=== PATIENT | female | born 1980 | race Caucasian/White ===

== ENCOUNTER 2017-01-24 12:25 | Inpatient (IN) | payer MEDICARE, OTHER ==
[~2017-01-24] VITALS: Ht 132.1 cm; Wt 36.3 kg
[~2017-01-24 12:25] MED LIST: ACID1TAB14 PO; FAMO20TA5 PO; LEVE100S8 PEG; LEVO100T5 PEG; NYST60PO TP; SCOP1PAT TD; [UNRECOGNIZED DRUG - CODE] PEG
[2017-01-24] MEDS ORDERED: IV NORMAL SALINE 500ML BAG 500 ML IV ONE (13:00)
--- NOTE | 2017-01-24 13:25 | RAD ---
EXAM: CHEST 1 VIEW History: Tachycardia COMPARISON: 09/28/2015 TECHNIQUE: Single portable radiograph of the chest FINDINGS: The cardiac silhouette is unremarkable. The lungs are clear bilaterally. The costophrenic sulci are clear and well demarcated. IMPRESSION: No radiographic evidence of an acute cardiopulmonary process.
--- NOTE | 2017-01-24 13:32 | PHYS DOC ---
Past Medical History Past Medical History: CVA, Hypothyroid, Seizure, Other Additional Past Medical Histor: BRAIN TUMOR, fx to R upper arm Past Surgical History: Other Additional Past Surgical Histo: BRAIN TUMOR SURGERY, THYROIDECTOMY, PEG tube placement Alcohol Use: None Drug Use: None Adult General Chief Complaint Chief Complaint: BEDSORES HPI HPI Patient is a 36 year old female who presents with wound infection to buttocks. Patient is nonverbal, unable to give history due to clinical condition. She has history of brain tumor & stroke, nonverbal at baseline. Aunt at bedside states family helps care for her, today they noticed a deep wound on her right buttock/coccyx which was red in appearance. No known fevers, chills, nausea, vomiting. She lives at home & family helps to care for her. Review of Systems Review of Systems unable to obtain due to clinical condition. Current Medications Current Medications Current Medications Medications (Trade) Dose Ordered Sig/Masoud Start Time Stop Time Status Last Admin Dose Admin Sodium Chloride 500 ml @ 0 mls/hr 1X ONCE 01/24/17 13:00 01/24/17 13:01 DC 01/24/17 13:55 999 MLS/HR Allergies Allergies Allergies Coded Allergies Type Severity Reaction Last Updated Verified apple Allergy Severe SEIZURES 09/28/15 Yes phenytoin Allergy Intermediate Rash 09/28/15 Yes Physical Exam Physical Exam Constitutional: thin, frail, no acute distress, non-toxic appearance. HENT: Normocephalic, atraumatic, bilateral external ears normal, oropharynx moist, nose normal. Eyes: PERRLA, conjunctiva normal, no discharge. Neck: supple, no stridor. Cardiovascular: RRR, no murmurs, no edema. Lungs & Thorax: diminished in bases, LCTAB, no wheezing, no respiratory distress. Abdomen: soft, nontender, nondistended. Skin: over right buttock/coccyx there is a 4 x 5 cm circular wound approx 2 cm deep with surrounding erythema/warmth, no drainage. no abscess identified. Back: No tenderness. Extremities: No tenderness, no edema. Neurologic: alert, nonverbal, no spontaneous movements of extremities which is baseline. Psychologic: unable to assess due to nonverbal state. Current Patient Data Vital Signs Vital Signs Date Time Temp Pulse Resp B/P (MAP) Pulse Ox O2 Delivery O2 Flow Rate FiO2 01/24/17 12:50 98.2 92 18 126/79 (95) 97 Room Air 98.2 EKG EKG [] Radiology/Procedures Radiology/Procedures PROCEDURE: CHEST AP ONLY EXAM: CHEST 1 VIEW History: Tachycardia COMPARISON: 09/28/2015 TECHNIQUE: Single portable radiograph of the chest FINDINGS: The cardiac silhouette is unremarkable. The lungs are clear bilaterally. The costophrenic sulci are clear and well demarcated. IMPRESSION: No radiographic evidence of an acute cardiopulmonary process. DICTATED and SIGNED BY: KAVITHA GUTIERREZ MD DATE: 01/24/17 1322[] Course & Med Decision Making Course & Med Decision Making Pertinent Labs and Imaging studies reviewed. (See chart for details) The issue presents with infected wound/pressure ulcer to her right buttock. Obtained a wound culture as well as labs, UA, CXR. The patient received IV fluids. She does not meet criteria for SIRS/sepsis. Recommend admission for IV antibiotics, wound care consult. Will continue IV fluid hydration for hyponatremia. Her family agrees with plan of care. She is admitted in stable condition. [] Dragon Disclaimer Dragon Disclaimer This electronic medical record was generated, in whole or in part, using a voice recognition dictation system. Departure Departure Impression: Primary Impression: Wound infection Additional Impressions: Hyponatremia Leukocytosis Disposition: ADMITTED INPATIENT Condition: STABLE Problem Qualifiers CLIFF ARREAGA MD Jan 24, 2017 13:31
[2017-01-24 13:40] LABS: BASO % 0 % (0-3); EOS % 0 % (0-3); HEMATOCRIT 29.9 % (36.0-47.0); LYMPH # 0.4 x10^3/uL (1.0-4.8); LYMPH % 4 % (24-48); MEAN CORPUSCULAR HEMOGLOBIN 30 pg (25-35); MEAN CORPUSCULAR HGB CONC 33 g/dL (31-37); MEAN CORPUSCULAR VOLUME 91 fL (79-100); MONO % 6 % (0-9); NEUT % 90 % (31-73); PLATELET COUNT 532 x10^3/uL (140-400); RED BLOOD COUNT 3.31 x10^6/uL (3.50-5.40); RED CELL DISTRIBUTION WIDTH 14.5 % (11.5-14.5); WHITE BLOOD COUNT 11.3 x10^3/uL (4.0-11.0)
[2017-01-24 13:48] LABS: ANION GAP 0 (6-14); BLOOD UREA NITROGEN 17 mg/dL (7-20); BUN/CREATININE RATIO 85 (6-20); CALCIUM 8.2 mg/dL (8.5-10.1); CARBON DIOXIDE 32 mmol/L (21-32); CHLORIDE 92 mmol/L (98-107); CREATININE 0.2 mg/dL (0.6-1.0); GFR > 300.0; GLUCOSE 111 mg/dL (70-99); POTASSIUM 4.6 mmol/L (3.5-5.1); SODIUM 124 mmol/L (136-145)
[2017-01-24 13:54] LABS: ALBUMIN 2.3 g/dL (3.4-5.0); ALBUMIN/GLOBULIN RATIO 0.7 (1.0-1.7); ALK PHOS 130 U/L (46-116); ALT (SGPT) 23 U/L (14-59); AST (SGOT) 21 U/L (15-37); TOTAL BILIRUBIN 0.1 mg/dL (0.2-1.0); TOTAL PROTEIN 5.8 g/dL (6.4-8.2)
[2017-01-24 14:07] LABS: BILIRUBIN,URINE NEGATIVE (NEG); GLUCOSE,URINE NEGATIVE (NEG); NITRITE,URINE NEGATIVE (NEG); PROTEIN,URINE NEGATIVE (NEG-TRACE); UROBILINOGEN,URINE 0.2 mg/dL (0.2 mg/dL)
--- NOTE | 2017-01-24 14:14 | ACF ---
Admit Criteria Forms Admit Criteria Forms Admit Criteria Forms WOUND AND SKIN MANAGEMENT GR Clinical Indications for Procedure (Place 'X' for any and all applicable criteria): Surgery or other procedure covered by this guideline is indicated for ANY ONE of the following: [] I.Skin lesion excision or other surgery needed as indicated by ANY ONE of the following (1)(2) : [] a) Melanoma(3) [] b) Hidradenitis suppurativa(5)(6) [] c) Other malignant tumor (eg, basal or squamous cell carcinoma)(4) [] d) Benign tumor that is causing significant functional impairment [] e) Benign tumor with recurrent infection not responsive to nonsurgical therapy [] II. Pressure ulcer closure or other procedure needed; indications include ANY ONE of the following(7)(8)(9) : [] a) Stage III or IV ulcer in medically stable patient not healing with conservative management A [] b) Prolonged healing (> 12 weeks) will significantly interfere with other patient care needs. [] III. Burn care needed (thermal, electrical, chemical, or frostbite) as indicated by ANY ONE of the following(10)(11(12)(13): [] a) Partial thickness burn greater than 10% of body surface area [] c) Full thickness burn [] d) Significant chong of hands, feet, face, perineum, genitalia, or major joints [] e) Significant electrical injury (14) [] f) Chemical chong [] g) Circumferential chong [] h) Significant inhalation injury [] i) Chong in patients with pre-existing medical comorbidities that could complicate management (eg, heart failure, COPD, diabetes) [] j) Chong with concomitant trauma requiring inpatient management [] IV. Skin grafting needed (skin, flap, pedicle, or other tissue transfer graft ) as indicated by ANY ONE of the following (14)(15): [] a) Large wounds or ulcers(7) [] b) Healing chong(10)(16) [] c) Reconstructive surgery [] V. Skin disease or infection requiring inpatient care procedures; ANY ONE of the following (19)(20) : [] a) Severe pemphigus (eg, treatment of large body area required; steroids greater than 80 mg/day; immunosuppressive therapy commencement) [] b) Psoriasis requiring large area (eg, 50% of body surface area) complex care (eg, anthralin, tar) not performable at any other level of care B ( 21)(22) [] c) Toxic epidermal necrolysis [] d) Herpes zoster (disseminated or involving large area, (eg, whole trunk))(23) [] e) Generalized urticaria not responding to emergency treatment(24) [] f) Small-Delon syndrome [] g) Neutrophilic dermatosis (eg, pyoderma gangrenosum, Sweet syndrome) requiring high-dose immunosuppression or wound debridement(29) [] h) Other disorder requiring inpatient level of care [] i) Herpes zoster (disseminated or involving large area, (eg, whole trunk))(23) [] j) Generalized urticaria not responding to emergency treatment(24) [] . Incision or drainage needed of skin or subcutaneous tissue(5)(17)(18) [X] VII. Wound debridement or complex care needed (eg, ulcer with necrosis)(14)( 18)(19) [] VIII.Postoperative complex wound care (eg, necrotic surgical wound)(14) (18) [] IX. Trauma care needed as indicated by ANY ONE of the following: [] a) Traumatic amputation(29) [] b) Major skin loss (eg, degloving injury) [] c) Crush or contusion with possible compartment syndrome(29) [] d) Severe tissue destruction or necrosis from bite or sting(30)(31) The original [facility] content created by [employer] has been revised. The portions of the content which have been revised are identified through the use of italic text or in bold, and [facility] has neither reviewed nor approved the modified material. All other unmodified content is copyright [facility] [employer]. Please see references footnoted in the original [employer] edition 2016 WILMAR ORR Jan 24, 2017 14:14
[2017-01-24] MEDS ORDERED: OXCA300O PEG ×2 (14:18→14:22)
[2017-01-24] MEDS ORDERED: ACET160O49 PO (14:18)
[2017-01-24 14:23] LABS: BACTERIA,URINE 0 /HPF (0-FEW); RBC,URINE 0 /HPF (0-2); SQUAMOUS EPITHELIAL CELL,UR FEW /LPF; WBC,URINE 0 /HPF (0-4)
[2017-01-24] MEDS ORDERED: VANCOMYCIN 1GM IVPB FOR OMNI 250 ML IV ONE (14:30)
[2017-01-24] MEDS ORDERED: ONDANSETRON PF 4 MG/2 ML VIAL. IV PRN (15:15)
[2017-01-24 15:40] LABS: % EOS 2 % (0-5); HYPOCHROMIA SLIGHT; PLT ESTIMATE INCREASED (ADEQUATE)
[2017-01-24 15:42] LABS: ACANTHOCYTES FEW; POIKILOCYTOSIS SLIGHT; SPHEROCYTES FEW; TOXIC VACUOLATION SLIGHT
[2017-01-24] MEDS: VANCOMYCIN PER PHARMACY MC PRN (18:00)
[2017-01-24] MEDS: MORPHINE SULFATE 2 MG/ML DISP.SYRIN. IV PRN (18:02)
[2017-01-24 19:00] VITALS: BP 133/56
[2017-01-24] MEDS ORDERED: ACET160S PO (20:12)
--- NOTE | 2017-01-24 21:30 | HP ---
ADMIT DATE: 01/24/2017 CHIEF COMPLAINT: Decubitus ulcers, cellulitis. 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 She comes in from home where her sister and brother are taking care of her. She had developed a right buttock/coccyx wound with cellulitis and was therefore brought in. Per aunt who is at bedside currently, no fevers or chills were noted as she has no other issues currently. Per her aunt, she is actually able to communicate with a special computer recognizing her visual gaze. She is able to have conversations with her speech pathologist who is the only one who is able to utilize the computer with her. Family, however, is caring for her round the clock. PAST MEDICAL HISTORY: Brain tumors, CVA, hypothyroidism, status post thyroidectomy, PEG tube placement. FAMILY HISTORY: No pertinent family history known to aunt. SOCIAL HISTORY: Bedbound, living with her brother and sister currently, mother 3 months ago. ALLERGIES: PHENYTOIN AND APPLE. MEDICATIONS: MAR reconciled with home meds. REVIEW OF SYSTEMS: Unable to obtain as the patient is completely noncommunicative. PHYSICAL EXAMINATION: VITAL SIGNS: From today show a blood pressure of 125/60, heart rate at 100, respiratory rate at 18, she is afebrile. GENERAL: This is a tiny 36-year-old woman, awake, eye is tracking, appears comfortable. HEENT: Shows alopecia over both temporoparietal areas, incomplete. She also has an approximately silver dollar size scab on her right parietal bone just lateral to the midline. Craniotomy incisions are faint and well-healed. Complexion is somewhat red. NECK: Supple. LUNGS: Clear. HEART: Regular rate and rhythm. ABDOMEN: Has positive bowel sounds. PEG tube present. EXTREMITIES: Atrophic. Buttock wound is covered with absorbent pad, and feet are in boots. LABORATORY DATA: CBC with a WBC of 11.3, hemoglobin 10.0, platelets of 532, neutrophils at 90%. Chemistries with a BUN and creatinine of 17 and 0.2, sodium at 124, potassium 4.6. LFTs normal, alkaline phosphatase slightly elevated at 130 (probable bone source). UA is clean. IMAGING STUDIES: Chest x-ray obtained shows no acute cardiopulmonary process. ASSESSMENT AND PLAN: The patient is a 36-year-old unfortunate woman, bedbound with worsening bedsores. Wound care has been consulted to manage. With elevated WBC and left shift, we will start her on intravenous antibiotics for the time being. Probably, we will be able to switch that to p.o./PEG. For her nutrition, she apparently takes protein enhanced tube feeds at home, 8 ounces at morning and at night. Even with her tiny weight, I suspect that this is not quite enough. I would prefer smaller doses more frequently. We will therefore give her 5 ounces q. 6 hours with same amount of free water. She appears mildly dehydrated by electrolytes. SANDY ANNE MD DR: THOMAS/nts JOB#: [id number] / [id number] Yenny Arenas
[2017-01-24 23:00] VITALS: BP 146/60
[2017-01-24] MEDS: ACETAMINOPHEN 650 MG/20.3 ML SOLUTION. PO PRN (23:13)
[2017-01-24] MEDS: OXcarbazepine 300 MG TABLET PEG SCH (23:13)
[2017-01-24] MEDS: FAMOTIDINE 20 MG TABLET. PO SCH (23:13)
[2017-01-24] MEDS: IV NORMAL SALINE 1000ML BAG 1,000 ML IV SCH (23:14)
[2017-01-25] MEDS: LOPERAMIDE 2 MG/10 ML ORAL SOLUTION. PEG SCH ×4 (00:48→17:35)
[2017-01-25] MEDS: IV NORMAL SALINE 1000ML BAG 1,000 ML IV SCH ×2 (01:02→10:00)
[2017-01-25 03:00] VITALS: BP 139/61
[2017-01-25] MEDS: MORPHINE SULFATE 2 MG/ML DISP.SYRIN. IV PRN ×2 (03:42→10:11)
[2017-01-25] MEDS: VANCOMYCIN 500 MG in IV NORMAL SALINE 100ML 100 ML IV SCH ×2 (05:44→16:25)
[2017-01-25 07:00] VITALS: BP 147/58
[2017-01-25] MEDS: FAMOTIDINE 20 MG TABLET. PO SCH ×2 (09:00→22:33)
--- NOTE | 2017-01-25 09:05 | PDOC ---
PROGRESS NOTES Chief Complaint Chief Complaint decub ulcers ASSESSMENT AND PLAN: 1. Decubitus ulcers: wound care as per RN. awaiting wound care service to assess. on vanco for now 2. PCM: moderate. on bolus PEG feeds; feeds increased over home administrations and spread out to qid. nutrition consult 3. (Functional) paraplegia: hx brain tumors, s/p resection. has been nonverbal/paraplegic for 10 yrs, but apparently able to communicate with visual gaze adapted computer screen History of Present Illness History of Present Illness noncommunicative Vitals Vitals Vital Signs Date Time Temp Pulse Resp B/P (MAP) Pulse Ox O2 Delivery O2 Flow Rate FiO2 01/25/17 07:00 96.8 96 18 147/58 (87) 99 Room Air 96.8 Physical Exam General: Other (unable to assess: awake, but completely noncommunicative) Heart: Regular rate Lungs: Clear, Other Abdomen: Normal bowel sounds, No tenderness, Other (PEG in place) Extremities: No edema Skin: No rashes Labs LABS Laboratory Tests Test 01/24/17 13:30 01/24/17 13:45 White Blood Count 11.3 x10^3/uL (4.0-11.0) Red Blood Count 3.31 x10^6/uL (3.50-5.40) Hemoglobin 10.0 g/dL (12.0-15.5) Hematocrit 29.9 % (36.0-47.0) Mean Corpuscular Volume 91 fL (79-100) Mean Corpuscular Hemoglobin 30 pg (25-35) Mean Corpuscular Hemoglobin Concent 33 g/dL (31-37) Red Cell Distribution Width 14.5 % (11.5-14.5) Platelet Count 532 x10^3/uL (140-400) Neutrophils (%) (Auto) 90 % (31-73) Lymphocytes (%) (Auto) 4 % (24-48) Monocytes (%) (Auto) 6 % (0-9) Eosinophils (%) (Auto) 0 % (0-3) Basophils (%) (Auto) 0 % (0-3) Neutrophils # (Auto) 10.1 x10^3uL (1.8-7.7) Lymphocytes # (Auto) 0.4 x10^3/uL (1.0-4.8) Monocytes # (Auto) 0.7 x10^3/uL (0.0-1.1) Eosinophils # (Auto) 0.0 x10^3/uL (0.0-0.7) Basophils # (Auto) 0.0 x10^3/uL (0.0-0.2) Segmented Neutrophils % 84 % (35-66) Band Neutrophils % 1 % (0-9) Lymphocytes % 7 % (24-48) Monocytes % 6 % (0-10) Eosinophils % 2 % (0-5) Toxic Vacuolation Slight Platelet Estimate Increased (ADEQUATE) Hypochromasia Slight Poikilocytosis Slight Spherocytes Few Acanthocytes Few Sodium Level 124 mmol/L (136-145) Potassium Level 4.6 mmol/L (3.5-5.1) Chloride Level 92 mmol/L (98-107) Carbon Dioxide Level 32 mmol/L (21-32) Anion Gap 0 (6-14) Blood Urea Nitrogen 17 mg/dL (7-20) Creatinine 0.2 mg/dL (0.6-1.0) Estimated GFR (Cockcroft-Gault) > 300.0 BUN/Creatinine Ratio 85 (6-20) Glucose Level 111 mg/dL (70-99) Calcium Level 8.2 mg/dL (8.5-10.1) Magnesium Level 2.0 mg/dL (1.8-2.4) Total Bilirubin 0.1 mg/dL (0.2-1.0) Aspartate Amino Transf (AST/SGOT) 21 U/L (15-37) Alanine Aminotransferase (ALT/SGPT) 23 U/L (14-59) Alkaline Phosphatase 130 U/L (46-116) Total Protein 5.8 g/dL (6.4-8.2) Albumin 2.3 g/dL (3.4-5.0) Albumin/Globulin Ratio 0.7 (1.0-1.7) Urine Collection Type U cath Urine Color Yellow Urine Clarity Clear Urine pH 7.0 Urine Specific [place] 1.025 Urine Protein Negative mg/dL (NEG-TRACE) Urine Glucose (UA) Negative mg/dL (NEG) Urine Ketones (Stick) Negative mg/dL (NEG) Urine Blood Negative (NEG) Urine Nitrite Negative (NEG) Urine Bilirubin Negative (NEG) Urine Urobilinogen Dipstick 0.2 mg/dL (0.2 mg/dL) Urine Leukocyte Esterase Negative (NEG) Urine RBC 0 /HPF (0-2) Urine WBC 0 /HPF (0-4) Urine Squamous Epithelial Cells Few /LPF Urine Amorphous Sediment Present /HPF Urine Bacteria 0 /HPF (0-FEW) Urine Mucus Slight /LPF SANDY ANNE MD Jan 25, 2017 09:05
[2017-01-25] MEDS: VANCOMYCIN PER PHARMACY MC PRN (09:18)
[2017-01-25] MEDS: SCOPOLAMINE 1.5MG PATCH. TD SCH (09:47)
[2017-01-25] MEDS: LEVOTHYROXINE 100 MCG TABLET PO SCH (09:47)
[2017-01-25] MEDS: OXcarbazepine 300 MG TABLET PEG SCH ×2 (09:48→22:33)
[2017-01-25 10:47] LABS: BASO % 1 % (0-3); EOS % 2 % (0-3); HEMATOCRIT 26.7 % (36.0-47.0); HEMOGLOBIN 9.1 g/dL (12.0-15.5); LYMPH # 0.3 x10^3/uL (1.0-4.8); LYMPH % 5 % (24-48); MEAN CORPUSCULAR HEMOGLOBIN 31 pg (25-35); MEAN CORPUSCULAR HGB CONC 34 g/dL (31-37); MEAN CORPUSCULAR VOLUME 90 fL (79-100); MONO % 7 % (0-9); NEUT % 86 % (31-73); PLATELET COUNT 288 x10^3/uL (140-400); RED BLOOD COUNT 2.96 x10^6/uL (3.50-5.40); RED CELL DISTRIBUTION WIDTH 14.1 % (11.5-14.5); WHITE BLOOD COUNT 6.1 x10^3/uL (4.0-11.0)
[2017-01-25 10:58] VITALS: BP 146/78
[2017-01-25 11:03] LABS: ANION GAP 5 (6-14); BLOOD UREA NITROGEN 8 mg/dL (7-20); CALCIUM 7.9 mg/dL (8.5-10.1); CARBON DIOXIDE 28 mmol/L (21-32); CHLORIDE 98 mmol/L (98-107); GLUCOSE 103 mg/dL (70-99); POTASSIUM 4.6 mmol/L (3.5-5.1); SODIUM 131 mmol/L (136-145)
[2017-01-25 11:31] LABS: CREATININE < 0.2 mg/dL (0.6-1.0)
[2017-01-25 15:00] VITALS: BP 135/59
[2017-01-25 19:00] VITALS: BP 145/70
[2017-01-25] MEDS: ACETAMINOPHEN 650 MG/20.3 ML SOLUTION. PO PRN (22:34)
[2017-01-25 23:00] VITALS: BP 150/64
[2017-01-26] MEDS ORDERED: MORPHINE SULFATE 2 MG/ML DISP.SYRIN. IV PRN (01:00)
[2017-01-26] MEDS: LOPERAMIDE 2 MG/10 ML ORAL SOLUTION. PEG SCH ×5 (01:03→23:14)
[2017-01-26] MEDS: IV NORMAL SALINE 1000ML BAG 1,000 ML IV SCH ×2 (01:05→13:01)
[2017-01-26 03:00] VITALS: BP 106/46
[2017-01-26] MEDS: LEVOTHYROXINE 100 MCG TABLET PO SCH (05:37)
[2017-01-26] MEDS: VANCOMYCIN 500 MG in IV NORMAL SALINE 100ML 100 ML IV SCH ×2 (05:37→17:29)
[2017-01-26 07:00] VITALS: BP 154/70
[2017-01-26 08:29] LABS: % SAT IRON 9 % (15-34); IRON,SERUM 14 ug/dL (50-170)
[2017-01-26 08:42] LABS: ANION GAP 2 (6-14); BLOOD UREA NITROGEN 7 mg/dL (7-20); CALCIUM 7.5 mg/dL (8.5-10.1); CARBON DIOXIDE 33 mmol/L (21-32); CHLORIDE 102 mmol/L (98-107); FERRITIN 72 ng/mL (8-252); GLUCOSE 92 mg/dL (70-99); POTASSIUM 3.8 mmol/L (3.5-5.1); SODIUM 137 mmol/L (136-145)
[2017-01-26 08:43] LABS: CREATININE < 0.2 mg/dL (0.6-1.0)
[2017-01-26] MEDS: OXcarbazepine 300 MG TABLET PEG SCH ×2 (09:00→20:17)
[2017-01-26] MEDS: FAMOTIDINE 20 MG TABLET. PO SCH ×2 (09:02→20:17)
[2017-01-26] MEDS: VANCOMYCIN PER PHARMACY MC PRN ×2 (10:32→16:47)
[2017-01-26 11:00] VITALS: BP 134/55
[2017-01-26 15:00] VITALS: BP 146/65
--- NOTE | 2017-01-26 16:39 | PDOC ---
PROGRESS NOTES Chief Complaint Chief Complaint decub ulcers ASSESSMENT AND PLAN: 1. Decubitus ulcers: wound care as per RN. awaiting wound care service to assess. on vanco for now 2. PCM: moderate. on bolus PEG feeds; feeds increased over home administrations and spread out to qid. nutrition consult 3. (Functional) paraplegia: hx brain tumors, s/p resection. has been nonverbal/paraplegic for 10 yrs, but apparently able to communicate with visual gaze adapted computer screen 4. ?home situation: consult palliative care for family discussion History of Present Illness History of Present Illness noncommunicative Vitals Vitals Vital Signs Date Time Temp Pulse Resp B/P (MAP) Pulse Ox O2 Delivery O2 Flow Rate FiO2 01/26/17 15:00 97.7 117 18 146/65 (92) 95 Room Air 97.7 Physical Exam General: Other (unable to assess: awake, but completely noncommunicative) Heart: Regular rate Lungs: Clear, Other Abdomen: Normal bowel sounds, No tenderness, Other (PEG in place) Extremities: No edema Skin: No rashes Labs LABS Laboratory Tests Test 01/26/17 08:00 Reticulocyte Count (auto) 1.0 % (0.5-2.5) Sodium Level 137 mmol/L (136-145) Potassium Level 3.8 mmol/L (3.5-5.1) Chloride Level 102 mmol/L (98-107) Carbon Dioxide Level 33 mmol/L (21-32) Anion Gap 2 (6-14) Blood Urea Nitrogen 7 mg/dL (7-20) Creatinine < 0.2 mg/dL (0.6-1.0) Estimated GFR (Cockcroft-Gault) Glucose Level 92 mg/dL (70-99) Calcium Level 7.5 mg/dL (8.5-10.1) Iron Level 14 ug/dL (50-170) Total Iron Binding Capacity 152 ug/dL (250-450) Iron Saturation 9 % (15-34) Ferritin 72 ng/mL (8-252) SANDY ANNE MD Jan 26, 2017 16:39
[2017-01-26 17:01] LABS: ANION GAP 1 (6-14); BLOOD UREA NITROGEN 7 mg/dL (7-20); CALCIUM 7.5 mg/dL (8.5-10.1); CARBON DIOXIDE 33 mmol/L (21-32); CHLORIDE 103 mmol/L (98-107); CREATININE < 0.2 mg/dL (0.6-1.0); GLUCOSE 96 mg/dL (70-99); SODIUM 137 mmol/L (136-145)
[2017-01-26 17:39] LABS: BASO % 1 % (0-3); EOS % 2 % (0-3); HEMATOCRIT 25.4 % (36.0-47.0); HEMOGLOBIN 8.5 g/dL (12.0-15.5); LYMPH # 0.4 x10^3/uL (1.0-4.8); LYMPH % 8 % (24-48); MEAN CORPUSCULAR HEMOGLOBIN 31 pg (25-35); MEAN CORPUSCULAR HGB CONC 33 g/dL (31-37); MEAN CORPUSCULAR VOLUME 92 fL (79-100); MONO % 12 % (0-9); NEUT % 77 % (31-73); PLATELET COUNT 409 x10^3/uL (140-400); RED BLOOD COUNT 2.77 x10^6/uL (3.50-5.40); RED CELL DISTRIBUTION WIDTH 14.5 % (11.5-14.5); WHITE BLOOD COUNT 5.1 x10^3/uL (4.0-11.0)
[2017-01-26 19:00] VITALS: BP 153/69
[2017-01-26 22:59] VITALS: BP 149/76
[2017-01-27] MEDS: IV NORMAL SALINE 1000ML BAG 1,000 ML IV SCH (02:08)
[2017-01-27 03:00] VITALS: BP 143/67
[2017-01-27] MEDS: VANCOMYCIN 500 MG in IV NORMAL SALINE 100ML 100 ML IV SCH (05:27)
[2017-01-27] MEDS: LOPERAMIDE 2 MG/10 ML ORAL SOLUTION. PEG SCH ×4 (05:27→23:25)
[2017-01-27] MEDS: LEVOTHYROXINE 100 MCG TABLET PO SCH (06:36)
[2017-01-27 07:00] VITALS: BP 152/60
[2017-01-27] MEDS: ACETAMINOPHEN 650 MG/20.3 ML SOLUTION. PO PRN ×3 (08:13→21:01)
[2017-01-27] MEDS: OXcarbazepine 300 MG TABLET PEG SCH ×2 (08:14→21:01)
[2017-01-27] MEDS: FAMOTIDINE 20 MG TABLET. PO SCH ×2 (08:15→21:01)
[2017-01-27 09:38] LABS: FOLATE 19.51 ng/ml (3.2-20.0)
[2017-01-27 11:00] VITALS: BP 121/54
[2017-01-27] MEDS ORDERED: MORPHINE SULFATE 4 MG/ML DISP.SYRIN. IV PRN (13:53)
[2017-01-27 15:00] VITALS: BP 150/57
--- NOTE | 2017-01-27 15:33 | PDOC ---
PROGRESS NOTES Chief Complaint Chief Complaint decub ulcers ASSESSMENT AND PLAN: 1. Decubitus ulcers: wound care as per RN. awaiting wound care service to assess. 2. PCM: moderate. on bolus PEG feeds; feeds increased over home administrations and spread out to qid. nutrition consult 3. (Functional) paraplegia: hx brain tumors, s/p resection. has been nonverbal/paraplegic for 10 yrs, but apparently able to communicate with visual gaze adapted computer screen 4. ?home situation: consult palliative care for family discussion head lesion iron deficient anemia hyponatremia SIRS plan: nutrition consult SW for HH dc vanco, add ysabel dc ivf wound care derm for head lesion bx venofer daily History of Present Illness History of Present Illness noncommunicative wound looks clean low PEG feeding Vitals Vitals Vital Signs Date Time Temp Pulse Resp B/P (MAP) Pulse Ox O2 Delivery O2 Flow Rate FiO2 01/27/17 11:00 97.5 93 20 121/54 (76) 94 Room Air 97.5 Physical Exam General: Alert, Other (unable to assess: awake, but completely noncommunicative) Heart: Regular rate Lungs: Clear, Other Abdomen: Normal bowel sounds, No tenderness, Other (PEG in place) Extremities: No edema Skin: No rashes Labs LABS Laboratory Tests Test 01/26/17 16:20 01/26/17 17:35 Sodium Level 137 mmol/L (136-145) Potassium Level 4.0 mmol/L (3.5-5.1) Chloride Level 103 mmol/L (98-107) Carbon Dioxide Level 33 mmol/L (21-32) Anion Gap 1 (6-14) Blood Urea Nitrogen 7 mg/dL (7-20) Creatinine < 0.2 mg/dL (0.6-1.0) Estimated GFR (Cockcroft-Gault) Glucose Level 96 mg/dL (70-99) Calcium Level 7.5 mg/dL (8.5-10.1) Vancomycin Level Trough 11.1 mcg/mL (10.0-20.0) Vancomycin Last Dose Date 01/26/17 Vancomycin Last Dose Time 0500 White Blood Count 5.1 x10^3/uL (4.0-11.0) Red Blood Count 2.77 x10^6/uL (3.50-5.40) Hemoglobin 8.5 g/dL (12.0-15.5) Hematocrit 25.4 % (36.0-47.0) Mean Corpuscular Volume 92 fL (79-100) Mean Corpuscular Hemoglobin 31 pg (25-35) Mean Corpuscular Hemoglobin Concent 33 g/dL (31-37) Red Cell Distribution Width 14.5 % (11.5-14.5) Platelet Count 409 x10^3/uL (140-400) Neutrophils (%) (Auto) 77 % (31-73) Lymphocytes (%) (Auto) 8 % (24-48) Monocytes (%) (Auto) 12 % (0-9) Eosinophils (%) (Auto) 2 % (0-3) Basophils (%) (Auto) 1 % (0-3) Neutrophils # (Auto) 4.0 x10^3uL (1.8-7.7) Lymphocytes # (Auto) 0.4 x10^3/uL (1.0-4.8) Monocytes # (Auto) 0.6 x10^3/uL (0.0-1.1) Eosinophils # (Auto) 0.1 x10^3/uL (0.0-0.7) Basophils # (Auto) 0.0 x10^3/uL (0.0-0.2) Assessment and Plan Assessmemt and Plan Problems Medical Problems: (1) Hyponatremia Status: Acute (2) Leukocytosis Status: Acute (3) Wound infection Status: Acute Problems: Comment Review of Relevant I have reviewed the following items shyam (where applicable) has been applied. Labs Laboratory Tests Test 01/26/17 08:00 01/26/17 16:20 01/26/17 17:35 Reticulocyte Count (auto) 1.0 % (0.5-2.5) Sodium Level 137 mmol/L (136-145) 137 mmol/L (136-145) Potassium Level 3.8 mmol/L (3.5-5.1) 4.0 mmol/L (3.5-5.1) Chloride Level 102 mmol/L (98-107) 103 mmol/L (98-107) Carbon Dioxide Level 33 mmol/L (21-32) 33 mmol/L (21-32) Anion Gap 2 (6-14) 1 (6-14) Blood Urea Nitrogen 7 mg/dL (7-20) 7 mg/dL (7-20) Creatinine < 0.2 mg/dL (0.6-1.0) < 0.2 mg/dL (0.6-1.0) Estimated GFR (Cockcroft-Gault) Glucose Level 92 mg/dL (70-99) 96 mg/dL (70-99) Calcium Level 7.5 mg/dL (8.5-10.1) 7.5 mg/dL (8.5-10.1) Iron Level 14 ug/dL (50-170) Total Iron Binding Capacity 152 ug/dL (250-450) Iron Saturation 9 % (15-34) Ferritin 72 ng/mL (8-252) Vitamin B12 Level 782 pg/mL (247-911) Serum Folate 19.51 ng/ml (3.2-20.0) Vancomycin Level Trough 11.1 mcg/mL (10.0-20.0) Vancomycin Last Dose Date 01/26/17 Vancomycin Last Dose Time 0500 White Blood Count 5.1 x10^3/uL (4.0-11.0) Red Blood Count 2.77 x10^6/uL (3.50-5.40) Hemoglobin 8.5 g/dL (12.0-15.5) Hematocrit 25.4 % (36.0-47.0) Mean Corpuscular Volume 92 fL (79-100) Mean Corpuscular Hemoglobin 31 pg (25-35) Mean Corpuscular Hemoglobin Concent 33 g/dL (31-37) Red Cell Distribution Width 14.5 % (11.5-14.5) Platelet Count 409 x10^3/uL (140-400) Neutrophils (%) (Auto) 77 % (31-73) Lymphocytes (%) (Auto) 8 % (24-48) Monocytes (%) (Auto) 12 % (0-9) Eosinophils (%) (Auto) 2 % (0-3) Basophils (%) (Auto) 1 % (0-3) Neutrophils # (Auto) 4.0 x10^3uL (1.8-7.7) Lymphocytes # (Auto) 0.4 x10^3/uL (1.0-4.8) Monocytes # (Auto) 0.6 x10^3/uL (0.0-1.1) Eosinophils # (Auto) 0.1 x10^3/uL (0.0-0.7) Basophils # (Auto) 0.0 x10^3/uL (0.0-0.2) Laboratory Tests Test 01/26/17 16:20 01/26/17 17:35 Sodium Level 137 mmol/L (136-145) Potassium Level 4.0 mmol/L (3.5-5.1) Chloride Level 103 mmol/L (98-107) Carbon Dioxide Level 33 mmol/L (21-32) Anion Gap 1 (6-14) Blood Urea Nitrogen 7 mg/dL (7-20) Creatinine < 0.2 mg/dL (0.6-1.0) Estimated GFR (Cockcroft-Gault) Glucose Level 96 mg/dL (70-99) Calcium Level 7.5 mg/dL (8.5-10.1) Vancomycin Level Trough 11.1 mcg/mL (10.0-20.0) Vancomycin Last Dose Date 01/26/17 Vancomycin Last Dose Time 0500 White Blood Count 5.1 x10^3/uL (4.0-11.0) Red Blood Count 2.77 x10^6/uL (3.50-5.40) Hemoglobin 8.5 g/dL (12.0-15.5) Hematocrit 25.4 % (36.0-47.0) Mean Corpuscular Volume 92 fL (79-100) Mean Corpuscular Hemoglobin 31 pg (25-35) Mean Corpuscular Hemoglobin Concent 33 g/dL (31-37) Red Cell Distribution Width 14.5 % (11.5-14.5) Platelet Count 409 x10^3/uL (140-400) Neutrophils (%) (Auto) 77 % (31-73) Lymphocytes (%) (Auto) 8 % (24-48) Monocytes (%) (Auto) 12 % (0-9) Eosinophils (%) (Auto) 2 % (0-3) Basophils (%) (Auto) 1 % (0-3) Neutrophils # (Auto) 4.0 x10^3uL (1.8-7.7) Lymphocytes # (Auto) 0.4 x10^3/uL (1.0-4.8) Monocytes # (Auto) 0.6 x10^3/uL (0.0-1.1) Eosinophils # (Auto) 0.1 x10^3/uL (0.0-0.7) Basophils # (Auto) 0.0 x10^3/uL (0.0-0.2) Microbiology 01/24/17 Gram Stain - Final, Complete Medications Current Medications Sodium Chloride 500 ml @ 0 mls/hr 1X ONCE IV Last administered on 01/24/17 13 :55; Start 01/24/17 at 13:00; Stop 01/24/17 at 13:01; Status DC Vancomycin HCl (Vanco Per Pharmacy) 1 each PRN DAILY PRN MC SEE COMMENTS Last administered on 01/26/17 16:47; Start 01/24/17 at 14:30 Vancomycin HCl 250 ml @ 250 mls/hr 1X ONCE IV Last administered on 01/24/17 17:04; Start 01/24/17 at 14:30; Stop 01/24/17 at 15:29; Status DC Ondansetron HCl (Zofran) 4 mg PRN Q8HRS PRN IV NAUSEA/VOMITING; Start 01/24/17 at 15:15; Stop 01/25/17 at 15:14; Status DC Morphine Sulfate 2 mg PRN Q2HR PRN IV PAIN Last administered on 01/25/17 10:11 ; Start 01/24/17 at 15:15; Stop 01/25/17 at 15:14; Status DC Sodium Chloride 1,000 ml @ 100 mls/hr Q10H IV Last administered on 01/25/17 10:00; Start 01/24/17 at 15:02; Stop 01/25/17 at 15:01; Status DC Vancomycin HCl 500 mg/Sodium Chloride 100 ml @ 100 mls/hr Q12H IV Last administered on 01/27/17 05:27; Start 01/25/17 at 05:00 Vancomycin HCl 1 each 1X ONCE MC ; Start 01/26/17 at 04:30; Stop 01/26/17 at 04 :31; Status DC Acetaminophen (Tylenol) 320 mg PRN Q6HRS PRN PO MILD PAIN / TEMP Last administered on 01/27/17 08:13; Start 01/24/17 at 20:15 Loperamide HCl (Imodium) 2 mg Q6HRS PEG Last administered on 01/27/17 14:08; Start 01/25/17 at 00:00 Famotidine (Pepcid) 20 mg BID PO Last administered on 01/27/17 08:15; Start at 23:00 Levetiracetam (Keppra) 500 mg BID PEG Last administered on 01/27/17 08:14; Start 01/24/17 at 23:00 Levothyroxine Sodium (Synthroid) 100 mcg DAILY07 PO Last administered on 06:36; Start 01/25/17 at 07:00 Scopolamine (Transderm-Scop) 1 patch Q3DAYS TD Last administered on 01/25/17 09:47; Start 01/25/17 at 09:00 Oxcarbazepine (Trileptal) 600 mg DAILY PEG Last administered on 01/27/17 08:14 ; Start 01/25/17 at 09:00 Oxcarbazepine (Trileptal) 750 mg QHS PEG Last administered on 01/26/17 20:17; Start 01/24/17 at 23:00 Morphine Sulfate 2 mg PRN Q2HR PRN IV SEVERE PAIN Last administered on 01:04; Start 01/26/17 at 01:00; Stop 01/27/17 at 13:53; Status DC Sodium Chloride 1,000 ml @ 75 mls/hr [id number] IV Last administered on 02:08; Start 01/26/17 at 01:00 Vancomycin HCl 1 each 1X ONCE MC Last administered on 01/26/17 16:30; Start 01/26/17 at 16:30; Stop 01/26/17 at 16:31; Status DC Morphine Sulfate 2 mg PRN Q2HR PRN IV SEVERE PAIN; Start 01/27/17 at 13:53 Active Scripts Active Transderm-Scop (Scopolamine) 1 Each Patch.td72 1 Patch TD Q3DAYS Famotidine 20 Mg Tablet 20 Mg PO BID Reported Acetaminophen 160 Mg/5 Ml Solution 320 Mg PO PRN Q6HRS PRN Oxcarbazepine 300 Mg/5 Ml Oral.susp 12.4 Ml PEG QHS Take 12.4 mL via PEG every night at bedtime as needed. Oxcarbazepine 300 Mg/5 Ml Oral.susp 10 Ml PEG DAILY Take 10 mL via PEG every morning. Keppra (Levetiracetam) 100 Mg/1 Ml Solution 500 Mg PEG BID Levothyroxine Sodium 100 Mcg Tablet 1 Tab PEG DAILY Vitals/I & O Vital Sign - Last 24 Hours 01/26/17 01/26/17 01/26/17 01/27/17 19:00 20:28 22:59 03:00 Temp 97.4 97.3 97.0 97.4 97.3 97.0 Pulse 112 120 104 Resp 20 18 19 B/P (MAP) 153/69 (97) 149/76 (100) 143/67 (92) Pulse Ox 94 95 94 O2 Delivery Room Air Room Air Room Air Room Air 01/27/17 01/27/17 01/27/17 07:00 08:20 11:00 Temp 98.1 97.5 98.1 97.5 Pulse 108 93 Resp 22 20 B/P (MAP) 152/60 (90) 121/54 (76) Pulse Ox 95 94 O2 Delivery Room Air Room Air Room Air KATY TEMPLE MD Jan 27, 2017 15:33
[2017-01-27] MEDS ORDERED: CEFPODOXIME 100 MG/5 ML ORAL.SUSP. PEG SCH (16:00)
[2017-01-27] MEDS ORDERED: VANCOMYCIN PER PHARMACY MC PRN (16:45)
[2017-01-27] MEDS: IRON SUCROSE COMPLEX 200 MG in IV NORMAL SALINE 100ML 100 ML IV SCH (18:20)
[2017-01-27 19:00] VITALS: BP 160/76
[2017-01-27] MEDS: VANCOMYCIN IV SCH (20:28)
[2017-01-27] MEDS: NORMAL SALINE IV SCH (20:28)
[2017-01-27] MEDS: VANCOMYCIN 750 MG in IV NORMAL SALINE 250ML 250 ML IV SCH (21:00)
[2017-01-27 23:00] VITALS: BP 124/56
[2017-01-28 03:00] VITALS: BP 92/59
[2017-01-28] MEDS: VANCOMYCIN 750 MG in IV NORMAL SALINE 250ML 250 ML IV SCH (05:00)
[2017-01-28] MEDS: LEVOTHYROXINE 100 MCG TABLET PO SCH (05:01)
[2017-01-28] MEDS: LOPERAMIDE 2 MG/10 ML ORAL SOLUTION. PEG SCH ×4 (05:01→23:52)
[2017-01-28] MEDS: VANCOMYCIN IV SCH (05:02)
[2017-01-28] MEDS: NORMAL SALINE IV SCH (05:02)
[2017-01-28] MEDS: ACETAMINOPHEN 650 MG/20.3 ML SOLUTION. PO PRN ×2 (05:03→14:09)
[2017-01-28 05:29] LABS: BASO # 0.1 x10^3/uL (0.0-0.2); BASO % 1 % (0-3); EOS % 3 % (0-3); HEMATOCRIT 23.6 % (36.0-47.0); HEMOGLOBIN 7.9 g/dL (12.0-15.5); LYMPH # 0.4 x10^3/uL (1.0-4.8); LYMPH % 5 % (24-48); MEAN CORPUSCULAR HEMOGLOBIN 30 pg (25-35); MEAN CORPUSCULAR HGB CONC 34 g/dL (31-37); MEAN CORPUSCULAR VOLUME 90 fL (79-100); MONO % 11 % (0-9); NEUT % 80 % (31-73); PLATELET COUNT 402 x10^3/uL (140-400); RED BLOOD COUNT 2.62 x10^6/uL (3.50-5.40); RED CELL DISTRIBUTION WIDTH 14.4 % (11.5-14.5); WHITE BLOOD COUNT 6.7 x10^3/uL (4.0-11.0)
[2017-01-28 05:33] LABS: ANION GAP 4 (6-14); BLOOD UREA NITROGEN 11 mg/dL (7-20); CALCIUM 7.7 mg/dL (8.5-10.1); CARBON DIOXIDE 31 mmol/L (21-32); CHLORIDE 99 mmol/L (98-107); CREATININE < 0.2 mg/dL (0.6-1.0); GLUCOSE 96 mg/dL (70-99); POTASSIUM 4.4 mmol/L (3.5-5.1); SODIUM 134 mmol/L (136-145)
[2017-01-28 06:56] VITALS: BP 132/61
[2017-01-28] MEDS: IRON SUCROSE COMPLEX 200 MG in IV NORMAL SALINE 100ML 100 ML IV SCH ×2 (09:00→09:24)
[2017-01-28] MEDS: FAMOTIDINE 20 MG TABLET. PO SCH ×2 (09:21→20:05)
[2017-01-28] MEDS: OXcarbazepine 300 MG TABLET PEG SCH ×2 (09:21→20:05)
[2017-01-28] MEDS: SCOPOLAMINE 1.5MG PATCH. TD SCH (09:23)
[2017-01-28 11:03] VITALS: BP 125/79
--- NOTE | 2017-01-28 12:58 | PDOC ---
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 on bolus PEG feeds; (Functional) paraplegia: hx brain tumors, s/p resection. has been nonverbal /paraplegic for 10 yrs, but apparently able to communicate with visual gaze adapted computer screen ?home situation: consult palliative care for family discussion head lesion iron deficient anemia hyponatremia SIRS plan: nutrition consulted, now on bolus 250cc q6h, with water SW for HH dc vanco,add levaquin dc ivf wound care, get sx consult, may need i and d derm for head lesion bx venofer daily check ESR, procal, ID consult. MRI sacral to rule out osteo. History of Present Illness History of Present Illness noncommunicative wound looks clean, but wound care nurse recommend I AND d BY SX low PEG feeding no iv access now, may need picc line if need cont iv abx Vitals Vitals Vital Signs Date Time Temp Pulse Resp B/P (MAP) Pulse Ox O2 Delivery O2 Flow Rate FiO2 01/28/17 11:03 98.7 109 16 125/79 (94) 98 Room Air 98.7 Physical Exam Physical Exam decubitus ulcer deep to sacral bone General: Alert, Other (unable to assess: awake, but completely noncommunicative) Heart: Regular rate Lungs: Clear, Other Abdomen: Normal bowel sounds, No tenderness, Other (PEG in place) Extremities: No edema Skin: No rashes Labs LABS Laboratory Tests Test 01/28/17 04:43 White Blood Count 6.7 x10^3/uL (4.0-11.0) Red Blood Count 2.62 x10^6/uL (3.50-5.40) Hemoglobin 7.9 g/dL (12.0-15.5) Hematocrit 23.6 % (36.0-47.0) Mean Corpuscular Volume 90 fL (79-100) Mean Corpuscular Hemoglobin 30 pg (25-35) Mean Corpuscular Hemoglobin Concent 34 g/dL (31-37) Red Cell Distribution Width 14.4 % (11.5-14.5) Platelet Count 402 x10^3/uL (140-400) Neutrophils (%) (Auto) 80 % (31-73) Lymphocytes (%) (Auto) 5 % (24-48) Monocytes (%) (Auto) 11 % (0-9) Eosinophils (%) (Auto) 3 % (0-3) Basophils (%) (Auto) 1 % (0-3) Neutrophils # (Auto) 5.4 x10^3uL (1.8-7.7) Lymphocytes # (Auto) 0.4 x10^3/uL (1.0-4.8) Monocytes # (Auto) 0.7 x10^3/uL (0.0-1.1) Eosinophils # (Auto) 0.2 x10^3/uL (0.0-0.7) Basophils # (Auto) 0.1 x10^3/uL (0.0-0.2) Sodium Level 134 mmol/L (136-145) Potassium Level 4.4 mmol/L (3.5-5.1) Chloride Level 99 mmol/L (98-107) Carbon Dioxide Level 31 mmol/L (21-32) Anion Gap 4 (6-14) Blood Urea Nitrogen 11 mg/dL (7-20) Creatinine < 0.2 mg/dL (0.6-1.0) Estimated GFR (Cockcroft-Gault) Glucose Level 96 mg/dL (70-99) Calcium Level 7.7 mg/dL (8.5-10.1) Assessment and Plan Assessmemt and Plan Problems Medical Problems: (1) Hyponatremia Status: Acute (2) Leukocytosis Status: Acute (3) Wound infection Status: Acute Problems: Comment Review of Relevant I have reviewed the following items shyam (where applicable) has been applied. Labs Laboratory Tests Test 01/26/17 16:20 01/26/17 17:35 01/28/17 04:43 Sodium Level 137 mmol/L (136-145) 134 mmol/L (136-145) Potassium Level 4.0 mmol/L (3.5-5.1) 4.4 mmol/L (3.5-5.1) Chloride Level 103 mmol/L (98-107) 99 mmol/L (98-107) Carbon Dioxide Level 33 mmol/L (21-32) 31 mmol/L (21-32) Anion Gap 1 (6-14) 4 (6-14) Blood Urea Nitrogen 7 mg/dL (7-20) 11 mg/dL (7-20) Creatinine < 0.2 mg/dL (0.6-1.0) < 0.2 mg/dL (0.6-1.0) Estimated GFR (Cockcroft-Gault) Glucose Level 96 mg/dL (70-99) 96 mg/dL (70-99) Calcium Level 7.5 mg/dL (8.5-10.1) 7.7 mg/dL (8.5-10.1) Vancomycin Level Trough 11.1 mcg/mL (10.0-20.0) Vancomycin Last Dose Date 01/26/17 Vancomycin Last Dose Time 0500 White Blood Count 5.1 x10^3/uL (4.0-11.0) 6.7 x10^3/uL (4.0-11.0) Red Blood Count 2.77 x10^6/uL (3.50-5.40) 2.62 x10^6/uL (3.50-5.40) Hemoglobin 8.5 g/dL (12.0-15.5) 7.9 g/dL (12.0-15.5) Hematocrit 25.4 % (36.0-47.0) 23.6 % (36.0-47.0) Mean Corpuscular Volume 92 fL (79-100) 90 fL (79-100) Mean Corpuscular Hemoglobin 31 pg (25-35) 30 pg (25-35) Mean Corpuscular Hemoglobin Concent 33 g/dL (31-37) 34 g/dL (31-37) Red Cell Distribution Width 14.5 % (11.5-14.5) 14.4 % (11.5-14.5) Platelet Count 409 x10^3/uL (140-400) 402 x10^3/uL (140-400) Neutrophils (%) (Auto) 77 % (31-73) 80 % (31-73) Lymphocytes (%) (Auto) 8 % (24-48) 5 % (24-48) Monocytes (%) (Auto) 12 % (0-9) 11 % (0-9) Eosinophils (%) (Auto) 2 % (0-3) 3 % (0-3) Basophils (%) (Auto) 1 % (0-3) 1 % (0-3) Neutrophils # (Auto) 4.0 x10^3uL (1.8-7.7) 5.4 x10^3uL (1.8-7.7) Lymphocytes # (Auto) 0.4 x10^3/uL (1.0-4.8) 0.4 x10^3/uL (1.0-4.8) Monocytes # (Auto) 0.6 x10^3/uL (0.0-1.1) 0.7 x10^3/uL (0.0-1.1) Eosinophils # (Auto) 0.1 x10^3/uL (0.0-0.7) 0.2 x10^3/uL (0.0-0.7) Basophils # (Auto) 0.0 x10^3/uL (0.0-0.2) 0.1 x10^3/uL (0.0-0.2) Laboratory Tests Test 01/28/17 04:43 White Blood Count 6.7 x10^3/uL (4.0-11.0) Red Blood Count 2.62 x10^6/uL (3.50-5.40) Hemoglobin 7.9 g/dL (12.0-15.5) Hematocrit 23.6 % (36.0-47.0) Mean Corpuscular Volume 90 fL (79-100) Mean Corpuscular Hemoglobin 30 pg (25-35) Mean Corpuscular Hemoglobin Concent 34 g/dL (31-37) Red Cell Distribution Width 14.4 % (11.5-14.5) Platelet Count 402 x10^3/uL (140-400) Neutrophils (%) (Auto) 80 % (31-73) Lymphocytes (%) (Auto) 5 % (24-48) Monocytes (%) (Auto) 11 % (0-9) Eosinophils (%) (Auto) 3 % (0-3) Basophils (%) (Auto) 1 % (0-3) Neutrophils # (Auto) 5.4 x10^3uL (1.8-7.7) Lymphocytes # (Auto) 0.4 x10^3/uL (1.0-4.8) Monocytes # (Auto) 0.7 x10^3/uL (0.0-1.1) Eosinophils # (Auto) 0.2 x10^3/uL (0.0-0.7) Basophils # (Auto) 0.1 x10^3/uL (0.0-0.2) Sodium Level 134 mmol/L (136-145) Potassium Level 4.4 mmol/L (3.5-5.1) Chloride Level 99 mmol/L (98-107) Carbon Dioxide Level 31 mmol/L (21-32) Anion Gap 4 (6-14) Blood Urea Nitrogen 11 mg/dL (7-20) Creatinine < 0.2 mg/dL (0.6-1.0) Estimated GFR (Cockcroft-Gault) Glucose Level 96 mg/dL (70-99) Calcium Level 7.7 mg/dL (8.5-10.1) Microbiology 01/24/17 Gram Stain - Final, Complete Medications Current Medications Sodium Chloride 500 ml @ 0 mls/hr 1X ONCE IV Last administered on 01/24/17 13 :55; Start 01/24/17 at 13:00; Stop 01/24/17 at 13:01; Status DC Vancomycin HCl (Vanco Per Pharmacy) 1 each PRN DAILY PRN MC SEE COMMENTS Last administered on 01/26/17 16:47; Start 01/24/17 at 14:30; Stop 01/27/17 at 15:32 ; Status DC Vancomycin HCl 250 ml @ 250 mls/hr 1X ONCE IV Last administered on 01/24/17 17:04; Start 01/24/17 at 14:30; Stop 01/24/17 at 15:29; Status DC Ondansetron HCl (Zofran) 4 mg PRN Q8HRS PRN IV NAUSEA/VOMITING; Start 01/24/17 at 15:15; Stop 01/25/17 at 15:14; Status DC Morphine Sulfate 2 mg PRN Q2HR PRN IV PAIN Last administered on 01/25/17 10:11 ; Start 01/24/17 at 15:15; Stop 01/25/17 at 15:14; Status DC Sodium Chloride 1,000 ml @ 100 mls/hr Q10H IV Last administered on 01/25/17 10:00; Start 01/24/17 at 15:02; Stop 01/25/17 at 15:01; Status DC Vancomycin HCl 500 mg/Sodium Chloride 100 ml @ 100 mls/hr Q12H IV Last administered on 01/27/17 05:27; Start 01/25/17 at 05:00; Stop 01/27/17 at 15:32 ; Status DC Vancomycin HCl 1 each 1X ONCE MC ; Start 01/26/17 at 04:30; Stop 01/26/17 at 04 :31; Status DC Acetaminophen (Tylenol) 320 mg PRN Q6HRS PRN PO MILD PAIN / TEMP Last administered on 01/28/17 05:03; Start 01/24/17 at 20:15 Loperamide HCl (Imodium) 2 mg Q6HRS PEG Last administered on 01/28/17 12:19; Start 01/25/17 at 00:00 Famotidine (Pepcid) 20 mg BID PO Last administered on 01/28/17 09:21; Start at 23:00 Levetiracetam (Keppra) 500 mg BID PEG Last administered on 01/28/17 09:20; Start 01/24/17 at 23:00 Levothyroxine Sodium (Synthroid) 100 mcg DAILY07 PO Last administered on 05:01; Start 01/25/17 at 07:00 Scopolamine (Transderm-Scop) 1 patch Q3DAYS TD Last administered on 01/28/17 09:23; Start 01/25/17 at 09:00 Oxcarbazepine (Trileptal) 600 mg DAILY PEG Last administered on 01/28/17 09:21 ; Start 01/25/17 at 09:00 Oxcarbazepine (Trileptal) 750 mg QHS PEG Last administered on 01/27/17 21:01; Start 01/24/17 at 23:00 Morphine Sulfate 2 mg PRN Q2HR PRN IV SEVERE PAIN Last administered on 01:04; Start 01/26/17 at 01:00; Stop 01/27/17 at 13:53; Status DC Sodium Chloride 1,000 ml @ 75 mls/hr [id number] IV Last administered on 02:08; Start 01/26/17 at 01:00; Stop 01/27/17 at 15:32; Status DC Vancomycin HCl 1 each 1X ONCE MC Last administered on 01/26/17 16:30; Start 01/26/17 at 16:30; Stop 01/26/17 at 16:31; Status DC Morphine Sulfate 2 mg PRN Q2HR PRN IV SEVERE PAIN; Start 01/27/17 at 13:53 Iron Sucrose 200 mg/Sodium Chloride 110 ml @ 55 mls/hr DAILY IV Last administered on 01/27/17 18:20; Start 01/27/17 at 16:00; Stop 01/29/17 at 16:00 Cefpodoxime Proxetil (Vantin) 100 mg Q12HR PEG ; Start 01/27/17 at 16:00; Stop 01/27/17 at 16:49; Status DC Vancomycin HCl 750 gm/Sodium Chloride 250 ml @ 250 mls/hr Q12H IV Last administered on 01/28/17 05:02; Start 01/27/17 at 17:00; Stop 01/28/17 at 11:01 ; Status DC Vancomycin HCl (Vanco Per Pharmacy) 1 each PRN DAILY PRN MC SEE COMMENTS Last administered on 01/27/17 16:58; Start 01/27/17 at 16:45; Stop 01/28/17 at 11:01 ; Status DC Levofloxacin/ Dextrose 150 ml @ 100 mls/hr Q24H IV ; Start 01/28/17 at 12:00; Status Cancel Levofloxacin/ Dextrose 100 ml @ 100 mls/hr Q24H IV ; Start 01/28/17 at 12:00 Active Scripts Active Transderm-Scop (Scopolamine) 1 Each Patch.td72 1 Patch TD Q3DAYS Famotidine 20 Mg Tablet 20 Mg PO BID Reported Acetaminophen 160 Mg/5 Ml Solution 320 Mg PO PRN Q6HRS PRN Oxcarbazepine 300 Mg/5 Ml Oral.susp 12.4 Ml PEG QHS Take 12.4 mL via PEG every night at bedtime as needed. Oxcarbazepine 300 Mg/5 Ml Oral.susp 10 Ml PEG DAILY Take 10 mL via PEG every morning. Keppra (Levetiracetam) 100 Mg/1 Ml Solution 500 Mg PEG BID Levothyroxine Sodium 100 Mcg Tablet 1 Tab PEG DAILY Vitals/I & O Vital Sign - Last 24 Hours 01/27/17 01/27/17 01/27/17 01/27/17 15:00 19:00 19:00 23:00 Temp 98.1 97.9 96.8 98.1 97.9 96.8 Pulse 117 96 89 Resp 20 16 16 B/P (MAP) 150/57 (88) 160/76 (104) 124/56 (78) Pulse Ox 100 96 97 O2 Delivery Room Air Room Air Room Air Room Air 01/28/17 01/28/17 01/28/17 01/28/17 03:00 06:56 08:30 11:03 Temp 97.9 98.7 98.7 97.9 98.7 98.7 Pulse 87 103 109 Resp 16 B/P (MAP) 92/59 (70) 132/61 (84) 125/79 (94) Pulse Ox 96 95 98 O2 Delivery Room Air Room Air Room Air Room Air KATY TEMPLE MD Jan 28, 2017 12:57
--- NOTE | 2017-01-28 13:25 | PDOC ---
Infectious Disease Note Vital Sign Vital Signs Vital Signs Date Time Temp Pulse Resp B/P (MAP) Pulse Ox O2 Delivery O2 Flow Rate FiO2 01/28/17 11:03 98.7 109 16 125/79 (94) 98 Room Air 98.7 Labs Lab Laboratory Tests Test 01/28/17 04:43 White Blood Count 6.7 x10^3/uL (4.0-11.0) Red Blood Count 2.62 x10^6/uL (3.50-5.40) Hemoglobin 7.9 g/dL (12.0-15.5) Hematocrit 23.6 % (36.0-47.0) Mean Corpuscular Volume 90 fL (79-100) Mean Corpuscular Hemoglobin 30 pg (25-35) Mean Corpuscular Hemoglobin Concent 34 g/dL (31-37) Red Cell Distribution Width 14.4 % (11.5-14.5) Platelet Count 402 x10^3/uL (140-400) Neutrophils (%) (Auto) 80 % (31-73) Lymphocytes (%) (Auto) 5 % (24-48) Monocytes (%) (Auto) 11 % (0-9) Eosinophils (%) (Auto) 3 % (0-3) Basophils (%) (Auto) 1 % (0-3) Neutrophils # (Auto) 5.4 x10^3uL (1.8-7.7) Lymphocytes # (Auto) 0.4 x10^3/uL (1.0-4.8) Monocytes # (Auto) 0.7 x10^3/uL (0.0-1.1) Eosinophils # (Auto) 0.2 x10^3/uL (0.0-0.7) Basophils # (Auto) 0.1 x10^3/uL (0.0-0.2) Sodium Level 134 mmol/L (136-145) Potassium Level 4.4 mmol/L (3.5-5.1) Chloride Level 99 mmol/L (98-107) Carbon Dioxide Level 31 mmol/L (21-32) Anion Gap 4 (6-14) Blood Urea Nitrogen 11 mg/dL (7-20) Creatinine < 0.2 mg/dL (0.6-1.0) Estimated GFR (Cockcroft-Gault) Glucose Level 96 mg/dL (70-99) Calcium Level 7.7 mg/dL (8.5-10.1) Objective Assessment 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
--- NOTE | 2017-01-28 13:59 | PDOC2 ---
LEE ANN BRADSHAW [employer] 01/28/17 1359: CONSULT Date of Consult Date of Consult DATE: 01/28/17 TIME: 13:51 Reason for Consult Reason for Consult: sacral decub Referring Physician Referring Physician: Dr Barr Identification/Chief Complaint Chief Complaint decub ulcer Problems: Source Source: Caregiver, Chart review History of Present Illness Reason for Visit: History of brain tumors and strokes. She is nonverbal and paraplegic. Her family cares for her at home. Family states she recently developed a wound to her sacral area that rapidly enlarged. Past Medical History CENTRAL NERVOUS SYSTEM: CVA Renal/: Urinary Incontinence Endocrine: Hypothyroidism Past Surgical History Past Surgical History: Other (thyroidectomy, peg tube) Family History Family History: Other (no pertinent history ) Social History ALCOHOL: none Drugs: None Lives: with Family Current Problem List Problem List Problems Medical Problems: (1) Hyponatremia Status: Acute (2) Leukocytosis Status: Acute (3) Wound infection Status: Acute Current Medications Current Medications Current Medications Sodium Chloride 500 ml @ 0 mls/hr 1X ONCE IV Last administered on 01/24/17 13 :55; Start 01/24/17 at 13:00; Stop 01/24/17 at 13:01; Status DC Vancomycin HCl (Vanco Per Pharmacy) 1 each PRN DAILY PRN MC SEE COMMENTS Last administered on 01/26/17 16:47; Start 01/24/17 at 14:30; Stop 01/27/17 at 15:32 ; Status DC Vancomycin HCl 250 ml @ 250 mls/hr 1X ONCE IV Last administered on 01/24/17 17:04; Start 01/24/17 at 14:30; Stop 01/24/17 at 15:29; Status DC Ondansetron HCl (Zofran) 4 mg PRN Q8HRS PRN IV NAUSEA/VOMITING; Start 01/24/17 at 15:15; Stop 01/25/17 at 15:14; Status DC Morphine Sulfate 2 mg PRN Q2HR PRN IV PAIN Last administered on 01/25/17 10:11 ; Start 01/24/17 at 15:15; Stop 01/25/17 at 15:14; Status DC Sodium Chloride 1,000 ml @ 100 mls/hr Q10H IV Last administered on 01/25/17 10:00; Start 01/24/17 at 15:02; Stop 01/25/17 at 15:01; Status DC Vancomycin HCl 500 mg/Sodium Chloride 100 ml @ 100 mls/hr Q12H IV Last administered on 01/27/17 05:27; Start 01/25/17 at 05:00; Stop 01/27/17 at 15:32 ; Status DC Vancomycin HCl 1 each 1X ONCE MC ; Start 01/26/17 at 04:30; Stop 01/26/17 at 04 :31; Status DC Acetaminophen (Tylenol) 320 mg PRN Q6HRS PRN PO MILD PAIN / TEMP Last administered on 01/28/17 05:03; Start 01/24/17 at 20:15 Loperamide HCl (Imodium) 2 mg Q6HRS PEG Last administered on 01/28/17 12:19; Start 01/25/17 at 00:00 Famotidine (Pepcid) 20 mg BID PO Last administered on 01/28/17 09:21; Start at 23:00 Levetiracetam (Keppra) 500 mg BID PEG Last administered on 01/28/17 09:20; Start 01/24/17 at 23:00 Levothyroxine Sodium (Synthroid) 100 mcg DAILY07 PO Last administered on 05:01; Start 01/25/17 at 07:00 Scopolamine (Transderm-Scop) 1 patch Q3DAYS TD Last administered on 01/28/17 09:23; Start 01/25/17 at 09:00 Oxcarbazepine (Trileptal) 600 mg DAILY PEG Last administered on 01/28/17 09:21 ; Start 01/25/17 at 09:00 Oxcarbazepine (Trileptal) 750 mg QHS PEG Last administered on 01/27/17 21:01; Start 01/24/17 at 23:00 Morphine Sulfate 2 mg PRN Q2HR PRN IV SEVERE PAIN Last administered on 01:04; Start 01/26/17 at 01:00; Stop 01/27/17 at 13:53; Status DC Sodium Chloride 1,000 ml @ 75 mls/hr [id number] IV Last administered on 02:08; Start 01/26/17 at 01:00; Stop 01/27/17 at 15:32; Status DC Vancomycin HCl 1 each 1X ONCE MC Last administered on 01/26/17 16:30; Start 01/26/17 at 16:30; Stop 01/26/17 at 16:31; Status DC Morphine Sulfate 2 mg PRN Q2HR PRN IV SEVERE PAIN; Start 01/27/17 at 13:53 Iron Sucrose 200 mg/Sodium Chloride 110 ml @ 55 mls/hr DAILY IV Last administered on 01/27/17 18:20; Start 01/27/17 at 16:00; Stop 01/29/17 at 16:00 Cefpodoxime Proxetil (Vantin) 100 mg Q12HR PEG ; Start 01/27/17 at 16:00; Stop 01/27/17 at 16:49; Status DC Vancomycin HCl 750 gm/Sodium Chloride 250 ml @ 250 mls/hr Q12H IV Last administered on 01/28/17 05:02; Start 01/27/17 at 17:00; Stop 01/28/17 at 11:01 ; Status DC Vancomycin HCl (Vanco Per Pharmacy) 1 each PRN DAILY PRN MC SEE COMMENTS Last administered on 01/27/17 16:58; Start 01/27/17 at 16:45; Stop 01/28/17 at 11:01 ; Status DC Levofloxacin/ Dextrose 150 ml @ 100 mls/hr Q24H IV ; Start 01/28/17 at 12:00; Status Cancel Levofloxacin/ Dextrose 100 ml @ 100 mls/hr Q24H IV ; Start 01/28/17 at 12:00 Active Scripts Active Transderm-Scop (Scopolamine) 1 Each Patch.td72 1 Patch TD Q3DAYS Famotidine 20 Mg Tablet 20 Mg PO BID Reported Acetaminophen 160 Mg/5 Ml Solution 320 Mg PO PRN Q6HRS PRN Oxcarbazepine 300 Mg/5 Ml Oral.susp 12.4 Ml PEG QHS Take 12.4 mL via PEG every night at bedtime as needed. Oxcarbazepine 300 Mg/5 Ml Oral.susp 10 Ml PEG DAILY Take 10 mL via PEG every morning. Keppra (Levetiracetam) 100 Mg/1 Ml Solution 500 Mg PEG BID Levothyroxine Sodium 100 Mcg Tablet 1 Tab PEG DAILY Allergies Allergies: Coded Allergies: apple (Verified Allergy, Severe, SEIZURES, 09/28/15) phenytoin (Verified Allergy, Intermediate, Rash, 09/28/15) ROS Review of System unable to obtain due to nonverbal status Physical Exam General: Alert, Cooperative, No acute distress HEENT: PERRLA, Mucous membr. moist/pink Lungs: Clear to auscultation, Normal air movement Heart: Normal S1, Normal S2, No murmurs, Other (tachycardia) Abdomen: Soft, No tenderness Extremities: Other (contracted extremities ) Skin: Other (sacral wound viewed, palpable bone, however wound clean, no purulent drainage or odor ) Vitals VITALS Vital Signs Date Time Temp Pulse Resp B/P (MAP) Pulse Ox O2 Delivery O2 Flow Rate FiO2 01/28/17 11:03 98.7 109 16 125/79 (94) 98 Room Air 98.7 Labs Labs Laboratory Tests Test 01/26/17 16:20 01/26/17 17:35 01/28/17 04:43 Sodium Level 137 mmol/L (136-145) 134 mmol/L (136-145) Potassium Level 4.0 mmol/L (3.5-5.1) 4.4 mmol/L (3.5-5.1) Chloride Level 103 mmol/L (98-107) 99 mmol/L (98-107) Carbon Dioxide Level 33 mmol/L (21-32) 31 mmol/L (21-32) Anion Gap 1 (6-14) 4 (6-14) Blood Urea Nitrogen 7 mg/dL (7-20) 11 mg/dL (7-20) Creatinine < 0.2 mg/dL (0.6-1.0) < 0.2 mg/dL (0.6-1.0) Estimated GFR (Cockcroft-Gault) Glucose Level 96 mg/dL (70-99) 96 mg/dL (70-99) Calcium Level 7.5 mg/dL (8.5-10.1) 7.7 mg/dL (8.5-10.1) Vancomycin Level Trough 11.1 mcg/mL (10.0-20.0) Vancomycin Last Dose Date 01/26/17 Vancomycin Last Dose Time 0500 White Blood Count 5.1 x10^3/uL (4.0-11.0) 6.7 x10^3/uL (4.0-11.0) Red Blood Count 2.77 x10^6/uL (3.50-5.40) 2.62 x10^6/uL (3.50-5.40) Hemoglobin 8.5 g/dL (12.0-15.5) 7.9 g/dL (12.0-15.5) Hematocrit 25.4 % (36.0-47.0) 23.6 % (36.0-47.0) Mean Corpuscular Volume 92 fL (79-100) 90 fL (79-100) Mean Corpuscular Hemoglobin 31 pg (25-35) 30 pg (25-35) Mean Corpuscular Hemoglobin Concent 33 g/dL (31-37) 34 g/dL (31-37) Red Cell Distribution Width 14.5 % (11.5-14.5) 14.4 % (11.5-14.5) Platelet Count 409 x10^3/uL (140-400) 402 x10^3/uL (140-400) Neutrophils (%) (Auto) 77 % (31-73) 80 % (31-73) Lymphocytes (%) (Auto) 8 % (24-48) 5 % (24-48) Monocytes (%) (Auto) 12 % (0-9) 11 % (0-9) Eosinophils (%) (Auto) 2 % (0-3) 3 % (0-3) Basophils (%) (Auto) 1 % (0-3) 1 % (0-3) Neutrophils # (Auto) 4.0 x10^3uL (1.8-7.7) 5.4 x10^3uL (1.8-7.7) Lymphocytes # (Auto) 0.4 x10^3/uL (1.0-4.8) 0.4 x10^3/uL (1.0-4.8) Monocytes # (Auto) 0.6 x10^3/uL (0.0-1.1) 0.7 x10^3/uL (0.0-1.1) Eosinophils # (Auto) 0.1 x10^3/uL (0.0-0.7) 0.2 x10^3/uL (0.0-0.7) Basophils # (Auto) 0.0 x10^3/uL (0.0-0.2) 0.1 x10^3/uL (0.0-0.2) Laboratory Tests Test 01/28/17 04:43 White Blood Count 6.7 x10^3/uL (4.0-11.0) Red Blood Count 2.62 x10^6/uL (3.50-5.40) Hemoglobin 7.9 g/dL (12.0-15.5) Hematocrit 23.6 % (36.0-47.0) Mean Corpuscular Volume 90 fL (79-100) Mean Corpuscular Hemoglobin 30 pg (25-35) Mean Corpuscular Hemoglobin Concent 34 g/dL (31-37) Red Cell Distribution Width 14.4 % (11.5-14.5) Platelet Count 402 x10^3/uL (140-400) Neutrophils (%) (Auto) 80 % (31-73) Lymphocytes (%) (Auto) 5 % (24-48) Monocytes (%) (Auto) 11 % (0-9) Eosinophils (%) (Auto) 3 % (0-3) Basophils (%) (Auto) 1 % (0-3) Neutrophils # (Auto) 5.4 x10^3uL (1.8-7.7) Lymphocytes # (Auto) 0.4 x10^3/uL (1.0-4.8) Monocytes # (Auto) 0.7 x10^3/uL (0.0-1.1) Eosinophils # (Auto) 0.2 x10^3/uL (0.0-0.7) Basophils # (Auto) 0.1 x10^3/uL (0.0-0.2) Sodium Level 134 mmol/L (136-145) Potassium Level 4.4 mmol/L (3.5-5.1) Chloride Level 99 mmol/L (98-107) Carbon Dioxide Level 31 mmol/L (21-32) Anion Gap 4 (6-14) Blood Urea Nitrogen 11 mg/dL (7-20) Creatinine < 0.2 mg/dL (0.6-1.0) Estimated GFR (Cockcroft-Gault) Glucose Level 96 mg/dL (70-99) Calcium Level 7.7 mg/dL (8.5-10.1) Assessment/Plan Assessment/Plan paraplegic, nonverbal, bed bound Hx of brain tumors, strokes sacral decub--reviewed with Dr Allen--plans for IV abx, wound vac wound clean, no plans for debridement at this time VERNON HERNANDEZ MD 01/28/17 1508: CONSULT Allergies Allergies: Coded Allergies: apple (Verified Allergy, Severe, SEIZURES, 09/28/15) phenytoin (Verified Allergy, Intermediate, Rash, 09/28/15) Assessment/Plan Assessment/Plan Reviewed, discussed with Ms Bradshaw, wound appears clean, but deep with exposed bone; won't need debridement, but agree with wound vac coverage LEE ANN BRADSHAW APRN Jan 28, 2017 13:59 VERNON HERNANDEZ MD Jan 28, 2017 15:08
[2017-01-28 14:49] VITALS: BP 126/55
[2017-01-28 19:00] VITALS: BP 162/87
[2017-01-28] MEDS: ACETAMINOPHEN 650 MG/20.3 ML SOLUTION. PEG PRN (20:05)
--- NOTE | 2017-01-28 21:48 | CONS ---
DATE OF CONSULTATION: 01/28/2017 REQUESTING PHYSICIAN: Dr. Barr. REASON FOR CONSULTATION: Sacral decubitus. 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 Evidently, also had a brain tumor with brain surgery done. The patient is in total care, nonverbal, paraplegic and now admitted with sacral decubitus. The patient evidently according to the family, aunt who is at the bedside that several days ago, there was a small wound they notice and then it all of a sudden got bigger. The patient again is not able to provide any information. The patient was given some antibiotic and now it had been stopped. PAST MEDICAL HISTORY: Positive for brain tumor status post resection, CVA, hypothyroidism, seizure disorder, dysphagia with a PEG tube placement and thyroidectomy done. SOCIAL HISTORY: The patient lives with family with a total care. ALLERGIES: Listed allergic to PHENYTOIN. CURRENT MEDICATIONS: Reviewed. REVIEW OF SYSTEMS: Unable to obtain. All the information obtained through the patient's nurse and aunt. There is no nausea, vomiting, diarrhea and fever noted. PHYSICAL EXAMINATION: GENERAL: Awake female, not in distress. VITAL SIGNS: Stable, afebrile. HEENT: NAD. NECK: Supple. No JVP. No lymphadenopathy. LUNGS: Clear. HEART: S1 and S2 regular. ABDOMEN: Benign. EXTREMITIES: No edema or cyanosis. The patient is neurologically nonverbal and does not move any extremities. There is sacral decubitus, which is about 3 cm x 3 cm or little more with exposed bone. It is red and healthy tissue and it is clean. No obvious signs of infection. LABORATORY DATA: White count is 6.7 when she came in was 11.3 white count. Now BUN and creatinine are normal. Urinalysis unremarkable. The wound culture done, which showed MSSA, E. coli and group B strep and also, there is a small wound in the ischial area, superficial. RADIOLOGICAL DATA: Chest x-ray done was unremarkable. IMPRESSION: 1. Sacrococcygeal decubitus, which is clean, but it is to the bone. Bone is palpable. 2. Cerebrovascular accident. 3. Brain tumor, status post resection. 4. Quadriplegic. RECOMMENDATIONS: I would put her on Rocephin if the family wants to be aggressive and tried to heal with wound vac. It probably will heal without any surgery with a wound VAC and some antibiotic support, just because of the exposed bone. Offload and we will continue to follow up. D/w family at bedside. Thank you very much, Dr. Barr, for giving me the opportunity to participate in this patient's care. Discussion with aunt done at the bedside. BRENDA LYNCH MD DR: TAYLOR/alejandra JOB#: [id number] / [id number] VELIA
[2017-01-28 22:47] VITALS: BP 119/55
[2017-01-29 02:55] VITALS: BP 112/51
[2017-01-29] MEDS: LOPERAMIDE 2 MG/10 ML ORAL SOLUTION. PEG SCH ×3 (05:29→19:46)
[2017-01-29] MEDS: LEVOTHYROXINE 100 MCG TABLET PO SCH (05:29)
[2017-01-29 05:51] LABS: CREATININE < 0.2 mg/dL (0.6-1.0)
[2017-01-29 07:00] VITALS: BP 138/64
[2017-01-29] MEDS: IRON SUCROSE COMPLEX 200 MG in IV NORMAL SALINE 100ML 100 ML IV SCH (09:00)
--- NOTE | 2017-01-29 09:29 | PDOC ---
Infectious Disease Note Subjective Subjective pt nonverbal ROS ROS unable to do Vital Sign Vital Signs Vital Signs Date Time Temp Pulse Resp B/P (MAP) Pulse Ox O2 Delivery O2 Flow Rate FiO2 01/29/17 07:00 100.0 107 18 138/64 (88) 95 Room Air 100.0 Physical Exam PHYSICAL EXAM GENERAL: NAD, Alert HEENT: PERRL, OC/OP NECK: Supple, no JVD, no LN LUNGS: Clear HEART: S1S2, no gallop, no murmur ABD: Soft, NT, no organomegaly, no rebound EXT: No edema, no cyanosis DIRECTOR OF STRATEGIC INITIATIVES: Alert, non verbal, does not move SKIN: No rash,, sacral decub to bone IV: ok Labs Lab Laboratory Tests Test 01/28/17 13:50 01/29/17 04:45 Erythrocyte Sedimentation Rate 16 (0-25) Procalcitonin < 0.10 ng/mL (0.00-0.10) Creatinine < 0.2 mg/dL (0.6-1.0) Estimated GFR (Cockcroft-Gault) Objective Assessment Sacral decub with exposed bone CVA Seizure disorder Brain tumor s/p resection Plan Plan of Care Rocephine wound vac off load family wants aggressive care BRENDA LYNCH MD Jan 29, 2017 09:29
[2017-01-29 10:43] VITALS: BP 138/66
[2017-01-29] MEDS: OXcarbazepine 300 MG TABLET PEG SCH ×2 (10:43→21:00)
[2017-01-29] MEDS: FAMOTIDINE 20 MG TABLET. PO SCH ×2 (10:44→21:00)
--- NOTE | 2017-01-29 12:11 | PDOC2 ---
NEUROLOGY CONSULT Date of Admission Date of Admission DATE: 01/29/17 TIME: 12:04 Reason for Consult Reason for Consult: Seizure Referring Physician Referring Physician: Dr. Barr PCP: Dr. Orta Neurologist: Dr. Grossman Source Source: Chart review, Patient History of Present Illness History of Present Illness The patient is a 36-year-old right-handed female with history of generalized convulsive epilepsy since age 1 who was admitted for sacral decubitus. She had a seizure this morning, this is the second seizure of this calendar year. The patient had a brain tumor at age 1 requiring radiation and surgery leaving her in a debilitated state and then she had a meningioma resected in 2001, a concussion in 2000, and a stroke in 1996. She is totally dependent for care. Her mother 4 months ago and now the patient's siblings care for her. She is nonverbal and has a PEG and a wheelchair. Past Medical History CENTRAL NERVOUS SYSTEM: CVA, Other (brain tumors, intellectual disability, totally debilitated state) Endocrine: Hypothyroidism Dermatology: Other (decubiti) Family History Family History: No pertinent hx Social History Social History Lives with siblings, totally disabled Current Medications Current Medications Current Medications Sodium Chloride 500 ml @ 0 mls/hr 1X ONCE IV Last administered on 01/24/17 13 :55; Start 01/24/17 at 13:00; Stop 01/24/17 at 13:01; Status DC Vancomycin HCl (Vanco Per Pharmacy) 1 each PRN DAILY PRN MC SEE COMMENTS Last administered on 01/26/17 16:47; Start 01/24/17 at 14:30; Stop 01/27/17 at 15:32 ; Status DC Vancomycin HCl 250 ml @ 250 mls/hr 1X ONCE IV Last administered on 01/24/17 17:04; Start 01/24/17 at 14:30; Stop 01/24/17 at 15:29; Status DC Ondansetron HCl (Zofran) 4 mg PRN Q8HRS PRN IV NAUSEA/VOMITING; Start 01/24/17 at 15:15; Stop 01/25/17 at 15:14; Status DC Morphine Sulfate 2 mg PRN Q2HR PRN IV PAIN Last administered on 01/25/17 10:11 ; Start 01/24/17 at 15:15; Stop 01/25/17 at 15:14; Status DC Sodium Chloride 1,000 ml @ 100 mls/hr Q10H IV Last administered on 01/25/17 10:00; Start 01/24/17 at 15:02; Stop 01/25/17 at 15:01; Status DC Vancomycin HCl 500 mg/Sodium Chloride 100 ml @ 100 mls/hr Q12H IV Last administered on 01/27/17 05:27; Start 01/25/17 at 05:00; Stop 01/27/17 at 15:32 ; Status DC Vancomycin HCl 1 each 1X ONCE MC ; Start 01/26/17 at 04:30; Stop 01/26/17 at 04 :31; Status DC Acetaminophen (Tylenol) 320 mg PRN Q6HRS PRN PO MILD PAIN / TEMP Last administered on 01/28/17 14:09; Start 01/24/17 at 20:15 Loperamide HCl (Imodium) 2 mg Q6HRS PEG Last administered on 01/29/17 11:29; Start 01/25/17 at 00:00 Famotidine (Pepcid) 20 mg BID PO Last administered on 01/29/17 10:44; Start at 23:00 Levetiracetam (Keppra) 500 mg BID PEG Last administered on 01/29/17 10:43; Start 01/24/17 at 23:00 Levothyroxine Sodium (Synthroid) 100 mcg DAILY07 PO Last administered on 05:29; Start 01/25/17 at 07:00 Scopolamine (Transderm-Scop) 1 patch Q3DAYS TD Last administered on 01/28/17 09:23; Start 01/25/17 at 09:00 Oxcarbazepine (Trileptal) 600 mg DAILY PEG Last administered on 01/29/17 10:43 ; Start 01/25/17 at 09:00 Oxcarbazepine (Trileptal) 750 mg QHS PEG Last administered on 01/28/17 20:05; Start 01/24/17 at 23:00 Morphine Sulfate 2 mg PRN Q2HR PRN IV SEVERE PAIN Last administered on 01:04; Start 01/26/17 at 01:00; Stop 01/27/17 at 13:53; Status DC Sodium Chloride 1,000 ml @ 75 mls/hr [id number] IV Last administered on 02:08; Start 01/26/17 at 01:00; Stop 01/27/17 at 15:32; Status DC Vancomycin HCl 1 each 1X ONCE MC Last administered on 01/26/17 16:30; Start 01/26/17 at 16:30; Stop 01/26/17 at 16:31; Status DC Morphine Sulfate 2 mg PRN Q2HR PRN IV SEVERE PAIN; Start 01/27/17 at 13:53 Iron Sucrose 200 mg/Sodium Chloride 110 ml @ 55 mls/hr DAILY IV Last administered on 01/27/17 18:20; Start 01/27/17 at 16:00; Stop 01/29/17 at 16:00 Cefpodoxime Proxetil (Vantin) 100 mg Q12HR PEG ; Start 01/27/17 at 16:00; Stop 01/27/17 at 16:49; Status DC Vancomycin HCl 750 gm/Sodium Chloride 250 ml @ 250 mls/hr Q12H IV Last administered on 01/28/17 05:02; Start 01/27/17 at 17:00; Stop 01/28/17 at 11:01 ; Status DC Vancomycin HCl (Vanco Per Pharmacy) 1 each PRN DAILY PRN MC SEE COMMENTS Last administered on 01/27/17 16:58; Start 01/27/17 at 16:45; Stop 01/28/17 at 11:01 ; Status DC Levofloxacin/ Dextrose 150 ml @ 100 mls/hr Q24H IV ; Start 01/28/17 at 12:00; Status Cancel Levofloxacin/ Dextrose 100 ml @ 100 mls/hr Q24H IV ; Start 01/28/17 at 12:00 Acetaminophen (Tylenol) 650 mg PRN Q6HRS PRN PEG MILD PAIN / TEMP Last administered on 01/28/17 20:05; Start 01/28/17 at 19:45 Acetaminophen/ Hydrocodone Bitart (Lortab 5/325) 1 tab PRN Q4HRS PRN PEG PAIN; Start 01/28/17 at 19:45 Lorazepam (Ativan) 2 mg PRN Q4HRS PRN IV ANXIETY / AGITATION; Start 01/29/17 at 12:00 Active Scripts Active Transderm-Scop (Scopolamine) 1 Each Patch.td72 1 Patch TD Q3DAYS Famotidine 20 Mg Tablet 20 Mg PO BID Reported Acetaminophen 160 Mg/5 Ml Solution 320 Mg PO PRN Q6HRS PRN Oxcarbazepine 300 Mg/5 Ml Oral.susp 12.4 Ml PEG QHS Take 12.4 mL via PEG every night at bedtime as needed. Oxcarbazepine 300 Mg/5 Ml Oral.susp 10 Ml PEG DAILY Take 10 mL via PEG every morning. Keppra (Levetiracetam) 100 Mg/1 Ml Solution 500 Mg PEG BID Levothyroxine Sodium 100 Mcg Tablet 1 Tab PEG DAILY Allergies Allergies: Coded Allergies: apple (Verified Allergy, Severe, SEIZURES, 09/28/15) phenytoin (Verified Allergy, Intermediate, Rash, 09/28/15) ROS Review of System No fevers, chills, weight loss, dyspnea, angina, dyspepsia, hematochezia, melena , dysuria, positive for diarrhea. Otherwise, 14-point review of systems is negative. Physical Exam Physical Examination PHYSICAL EXAMINATION: Vital signs: see above. General appearance is normal and in no acute distress. HEENT: Normocephalic and nontraumatic. Eyes, nose, ears, and throat are unremarkable. Neck is supple. No lymphadenopathy. No bruits are heard over the carotid artery. No crepitus. NEUROLOGIC: Alert, nonverbal, does not follow commands. Pupils equal reactive to light and extraocular movements intact. No facial asymmetry. Spastic tone in all 4 extremities, moves them slightly. Reflexes are not elicitable because of the high tone, plantar responses are silent. She does not cooperate with tests of coordination and sensation. Vitals VITALS Vital Signs Date Time Temp Pulse Resp B/P (MAP) Pulse Ox O2 Delivery O2 Flow Rate FiO2 01/29/17 10:43 99.5 110 18 138/66 (90) 93 Room Air 99.5 Labs Labs Laboratory Tests Test 01/28/17 04:43 01/28/17 13:50 01/29/17 04:45 White Blood Count 6.7 x10^3/uL (4.0-11.0) Red Blood Count 2.62 x10^6/uL (3.50-5.40) Hemoglobin 7.9 g/dL (12.0-15.5) Hematocrit 23.6 % (36.0-47.0) Mean Corpuscular Volume 90 fL (79-100) Mean Corpuscular Hemoglobin 30 pg (25-35) Mean Corpuscular Hemoglobin Concent 34 g/dL (31-37) Red Cell Distribution Width 14.4 % (11.5-14.5) Platelet Count 402 x10^3/uL (140-400) Neutrophils (%) (Auto) 80 % (31-73) Lymphocytes (%) (Auto) 5 % (24-48) Monocytes (%) (Auto) 11 % (0-9) Eosinophils (%) (Auto) 3 % (0-3) Basophils (%) (Auto) 1 % (0-3) Neutrophils # (Auto) 5.4 x10^3uL (1.8-7.7) Lymphocytes # (Auto) 0.4 x10^3/uL (1.0-4.8) Monocytes # (Auto) 0.7 x10^3/uL (0.0-1.1) Eosinophils # (Auto) 0.2 x10^3/uL (0.0-0.7) Basophils # (Auto) 0.1 x10^3/uL (0.0-0.2) Sodium Level 134 mmol/L (136-145) Potassium Level 4.4 mmol/L (3.5-5.1) Chloride Level 99 mmol/L (98-107) Carbon Dioxide Level 31 mmol/L (21-32) Anion Gap 4 (6-14) Blood Urea Nitrogen 11 mg/dL (7-20) Creatinine < 0.2 mg/dL (0.6-1.0) < 0.2 mg/dL (0.6-1.0) Estimated GFR (Cockcroft-Gault) Glucose Level 96 mg/dL (70-99) Calcium Level 7.7 mg/dL (8.5-10.1) Erythrocyte Sedimentation Rate 16 (0-25) Procalcitonin < 0.10 ng/mL (0.00-0.10) Laboratory Tests Test 01/28/17 13:50 01/29/17 04:45 Erythrocyte Sedimentation Rate 16 (0-25) Procalcitonin < 0.10 ng/mL (0.00-0.10) Creatinine < 0.2 mg/dL (0.6-1.0) Estimated GFR (Cockcroft-Gault) Assessment/Plan Assessment/Plan Impression: Epilepsy, breakthrough seizure this morning Spastic quadriplegia, aphasia, 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 Grossman as outpatient No additional neurological studies required I discussed my findings with the patient's [id number] who agrees that there is no need for being overly aggressive for this single breakthrough seizure such as obtaining imaging of the brain, anticonvulsant levels, or changing anticonvulsants. Thank you for letting me help with the patient's care. MARILEE BACON MD Jan 29, 2017 12:11
--- NOTE | 2017-01-29 13:18 | PDOC ---
PROGRESS NOTES Subjective Subjective pt seen during clean up Objective Objective Vital Signs Date Time Temp Pulse Resp B/P (MAP) Pulse Ox O2 Delivery O2 Flow Rate FiO2 01/29/17 10:43 99.5 110 18 138/66 (90) 93 Room Air 99.5 Physical Exam Physical Exam decub wounds with wound vac, edges clean looking Assessment Assessment Problems Medical Problems: (1) Hyponatremia Status: Acute (2) Leukocytosis Status: Acute (3) Wound infection Status: Acute Plan Plan of Care Wound vac therapy for decub, no plan for debridement; will sign off, please call if needed in the future Comment Review of Relevant I have reviewed the following items shyam (where applicable) has been applied. Labs Laboratory Tests Test 01/28/17 04:43 01/28/17 13:50 01/29/17 04:45 White Blood Count 6.7 x10^3/uL (4.0-11.0) Red Blood Count 2.62 x10^6/uL (3.50-5.40) Hemoglobin 7.9 g/dL (12.0-15.5) Hematocrit 23.6 % (36.0-47.0) Mean Corpuscular Volume 90 fL (79-100) Mean Corpuscular Hemoglobin 30 pg (25-35) Mean Corpuscular Hemoglobin Concent 34 g/dL (31-37) Red Cell Distribution Width 14.4 % (11.5-14.5) Platelet Count 402 x10^3/uL (140-400) Neutrophils (%) (Auto) 80 % (31-73) Lymphocytes (%) (Auto) 5 % (24-48) Monocytes (%) (Auto) 11 % (0-9) Eosinophils (%) (Auto) 3 % (0-3) Basophils (%) (Auto) 1 % (0-3) Neutrophils # (Auto) 5.4 x10^3uL (1.8-7.7) Lymphocytes # (Auto) 0.4 x10^3/uL (1.0-4.8) Monocytes # (Auto) 0.7 x10^3/uL (0.0-1.1) Eosinophils # (Auto) 0.2 x10^3/uL (0.0-0.7) Basophils # (Auto) 0.1 x10^3/uL (0.0-0.2) Sodium Level 134 mmol/L (136-145) Potassium Level 4.4 mmol/L (3.5-5.1) Chloride Level 99 mmol/L (98-107) Carbon Dioxide Level 31 mmol/L (21-32) Anion Gap 4 (6-14) Blood Urea Nitrogen 11 mg/dL (7-20) Creatinine < 0.2 mg/dL (0.6-1.0) < 0.2 mg/dL (0.6-1.0) Estimated GFR (Cockcroft-Gault) Glucose Level 96 mg/dL (70-99) Calcium Level 7.7 mg/dL (8.5-10.1) Erythrocyte Sedimentation Rate 16 (0-25) Procalcitonin < 0.10 ng/mL (0.00-0.10) Laboratory Tests Test 01/28/17 13:50 01/29/17 04:45 Erythrocyte Sedimentation Rate 16 (0-25) Procalcitonin < 0.10 ng/mL (0.00-0.10) Creatinine < 0.2 mg/dL (0.6-1.0) Estimated GFR (Cockcroft-Gault) Microbiology 01/24/17 Gram Stain - Final, Complete Medications Current Medications Sodium Chloride 500 ml @ 0 mls/hr 1X ONCE IV Last administered on 01/24/17 13 :55; Start 01/24/17 at 13:00; Stop 01/24/17 at 13:01; Status DC Vancomycin HCl (Vanco Per Pharmacy) 1 each PRN DAILY PRN MC SEE COMMENTS Last administered on 01/26/17 16:47; Start 01/24/17 at 14:30; Stop 01/27/17 at 15:32 ; Status DC Vancomycin HCl 250 ml @ 250 mls/hr 1X ONCE IV Last administered on 01/24/17 17:04; Start 01/24/17 at 14:30; Stop 01/24/17 at 15:29; Status DC Ondansetron HCl (Zofran) 4 mg PRN Q8HRS PRN IV NAUSEA/VOMITING; Start 01/24/17 at 15:15; Stop 01/25/17 at 15:14; Status DC Morphine Sulfate 2 mg PRN Q2HR PRN IV PAIN Last administered on 01/25/17 10:11 ; Start 01/24/17 at 15:15; Stop 01/25/17 at 15:14; Status DC Sodium Chloride 1,000 ml @ 100 mls/hr Q10H IV Last administered on 01/25/17 10:00; Start 01/24/17 at 15:02; Stop 01/25/17 at 15:01; Status DC Vancomycin HCl 500 mg/Sodium Chloride 100 ml @ 100 mls/hr Q12H IV Last administered on 01/27/17 05:27; Start 01/25/17 at 05:00; Stop 01/27/17 at 15:32 ; Status DC Vancomycin HCl 1 each 1X ONCE MC ; Start 01/26/17 at 04:30; Stop 01/26/17 at 04 :31; Status DC Acetaminophen (Tylenol) 320 mg PRN Q6HRS PRN PO MILD PAIN / TEMP Last administered on 01/28/17 14:09; Start 01/24/17 at 20:15 Loperamide HCl (Imodium) 2 mg Q6HRS PEG Last administered on 01/29/17 11:29; Start 01/25/17 at 00:00 Famotidine (Pepcid) 20 mg BID PO Last administered on 01/29/17 10:44; Start at 23:00 Levetiracetam (Keppra) 500 mg BID PEG Last administered on 01/29/17 10:43; Start 01/24/17 at 23:00 Levothyroxine Sodium (Synthroid) 100 mcg DAILY07 PO Last administered on 05:29; Start 01/25/17 at 07:00 Scopolamine (Transderm-Scop) 1 patch Q3DAYS TD Last administered on 01/28/17 09:23; Start 01/25/17 at 09:00 Oxcarbazepine (Trileptal) 600 mg DAILY PEG Last administered on 01/29/17 10:43 ; Start 01/25/17 at 09:00 Oxcarbazepine (Trileptal) 750 mg QHS PEG Last administered on 01/28/17 20:05; Start 01/24/17 at 23:00 Morphine Sulfate 2 mg PRN Q2HR PRN IV SEVERE PAIN Last administered on 01:04; Start 01/26/17 at 01:00; Stop 01/27/17 at 13:53; Status DC Sodium Chloride 1,000 ml @ 75 mls/hr [id number] IV Last administered on 02:08; Start 01/26/17 at 01:00; Stop 01/27/17 at 15:32; Status DC Vancomycin HCl 1 each 1X ONCE MC Last administered on 01/26/17 16:30; Start 01/26/17 at 16:30; Stop 01/26/17 at 16:31; Status DC Morphine Sulfate 2 mg PRN Q2HR PRN IV SEVERE PAIN; Start 01/27/17 at 13:53 Iron Sucrose 200 mg/Sodium Chloride 110 ml @ 55 mls/hr DAILY IV Last administered on 01/27/17 18:20; Start 01/27/17 at 16:00; Stop 01/29/17 at 16:00 Cefpodoxime Proxetil (Vantin) 100 mg Q12HR PEG ; Start 01/27/17 at 16:00; Stop 01/27/17 at 16:49; Status DC Vancomycin HCl 750 gm/Sodium Chloride 250 ml @ 250 mls/hr Q12H IV Last administered on 01/28/17 05:02; Start 01/27/17 at 17:00; Stop 01/28/17 at 11:01 ; Status DC Vancomycin HCl (Vanco Per Pharmacy) 1 each PRN DAILY PRN MC SEE COMMENTS Last administered on 01/27/17 16:58; Start 01/27/17 at 16:45; Stop 01/28/17 at 11:01 ; Status DC Levofloxacin/ Dextrose 150 ml @ 100 mls/hr Q24H IV ; Start 01/28/17 at 12:00; Status Cancel Levofloxacin/ Dextrose 100 ml @ 100 mls/hr Q24H IV ; Start 01/28/17 at 12:00 Acetaminophen (Tylenol) 650 mg PRN Q6HRS PRN PEG MILD PAIN / TEMP Last administered on 01/28/17 20:05; Start 01/28/17 at 19:45 Acetaminophen/ Hydrocodone Bitart (Lortab 5/325) 1 tab PRN Q4HRS PRN PEG PAIN; Start 01/28/17 at 19:45 Lorazepam (Ativan) 2 mg PRN Q4HRS PRN IV ANXIETY / AGITATION; Start 01/29/17 at 12:00 Active Scripts Active Transderm-Scop (Scopolamine) 1 Each Patch.td72 1 Patch TD Q3DAYS Famotidine 20 Mg Tablet 20 Mg PO BID Reported Acetaminophen 160 Mg/5 Ml Solution 320 Mg PO PRN Q6HRS PRN Oxcarbazepine 300 Mg/5 Ml Oral.susp 12.4 Ml PEG QHS Take 12.4 mL via PEG every night at bedtime as needed. Oxcarbazepine 300 Mg/5 Ml Oral.susp 10 Ml PEG DAILY Take 10 mL via PEG every morning. Keppra (Levetiracetam) 100 Mg/1 Ml Solution 500 Mg PEG BID Levothyroxine Sodium 100 Mcg Tablet 1 Tab PEG DAILY Vitals/I & O Vital Sign - Last 24 Hours 01/28/17 01/28/17 01/28/17 01/28/17 13:35 14:49 19:00 20:00 Temp 97.9 98.8 97.9 98.8 Pulse 107 127 Resp 16 18 B/P (MAP) 126/55 (78) 162/87 (112) Pulse Ox 94 95 O2 Delivery Room Air Room Air Room Air Room Air 01/28/17 01/29/17 01/29/17 01/29/17 22:47 02:55 07:00 10:43 Temp 98.8 98.1 100.0 99.5 98.8 98.1 100.0 99.5 Pulse 113 102 107 110 Resp 18 18 18 18 B/P (MAP) 119/55 (76) 112/51 (71) 138/64 (88) 138/66 (90) Pulse Ox 95 94 95 93 O2 Delivery Room Air Room Air Room Air Room Air VERNON HERNANDEZ MD Jan 29, 2017 13:18
--- NOTE | 2017-01-29 13:21 | RAD ---
Indication MRI clearance. AP and lateral views of the skull were obtained. The patient is status post craniotomy. 3 foreign bodies are noted associated with the craniotomy compatible with closure devices. There are metallic clips over the occiput. It is uncertain whether these are in the soft tissues or are postoperative in nature. It is uncertain whether the foreign bodies described above are MRI safe
--- NOTE | 2017-01-29 13:50 | PDOC ---
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 on bolus PEG feeds; (Functional) paraplegia: hx brain tumors, s/p resection. has been nonverbal /paraplegic for 10 yrs, but apparently able to communicate with visual gaze adapted computer screen ?home situation: consult palliative care for family discussion head lesion iron deficient anemia hyponatremia SIRS seizure plan: nutrition consulted, now on bolus 250cc q6h, with water SW for HH add ceftriaxone as per ID recommend, cont iv x4-6weeks on wound vac wound care, get sx consult, NO need i and d derm for head lesion bx Still pending venofer daily check ESR, procal neg, ID consult. MRI sacral to rule out osteo. neuro consulted, no need change anti seizure meds, ativan prn if seizure >5min check keppra level PICC line today plan dc tmr History of Present Illness History of Present Illness noncommunicative wound looks clean, but wound care nurse recommend I AND d BY SX, sx consulted, no need i and d low PEG feeding rapid response on 01/29 seizure x1min, last time was in Dec, then before was seizure free x1year Vitals Vitals Vital Signs Date Time Temp Pulse Resp B/P (MAP) Pulse Ox O2 Delivery O2 Flow Rate FiO2 01/29/17 10:43 99.5 110 18 138/66 (90) 93 Room Air 99.5 Physical Exam Physical Exam decubitus ulcer deep to sacral bone General: Alert, Cooperative, No acute distress Heart: Normal S1, Normal S2, No murmurs, Other (tachycardia) Lungs: Clear, Other Abdomen: Soft, No tenderness Extremities: Other (contracted extremities ) Skin: Other (sacral wound viewed, palpable bone, however wound clean, no purulent drainage or odor ) Labs LABS Laboratory Tests Test 01/28/17 13:50 01/29/17 04:45 Erythrocyte Sedimentation Rate 16 (0-25) Procalcitonin < 0.10 ng/mL (0.00-0.10) Creatinine < 0.2 mg/dL (0.6-1.0) Estimated GFR (Cockcroft-Gault) Assessment and Plan Assessmemt and Plan Problems Medical Problems: (1) Hyponatremia Status: Acute (2) Leukocytosis Status: Acute (3) Wound infection Status: Acute Problems: Comment Review of Relevant I have reviewed the following items shyam (where applicable) has been applied. Labs Laboratory Tests Test 01/28/17 04:43 01/28/17 13:50 01/29/17 04:45 White Blood Count 6.7 x10^3/uL (4.0-11.0) Red Blood Count 2.62 x10^6/uL (3.50-5.40) Hemoglobin 7.9 g/dL (12.0-15.5) Hematocrit 23.6 % (36.0-47.0) Mean Corpuscular Volume 90 fL (79-100) Mean Corpuscular Hemoglobin 30 pg (25-35) Mean Corpuscular Hemoglobin Concent 34 g/dL (31-37) Red Cell Distribution Width 14.4 % (11.5-14.5) Platelet Count 402 x10^3/uL (140-400) Neutrophils (%) (Auto) 80 % (31-73) Lymphocytes (%) (Auto) 5 % (24-48) Monocytes (%) (Auto) 11 % (0-9) Eosinophils (%) (Auto) 3 % (0-3) Basophils (%) (Auto) 1 % (0-3) Neutrophils # (Auto) 5.4 x10^3uL (1.8-7.7) Lymphocytes # (Auto) 0.4 x10^3/uL (1.0-4.8) Monocytes # (Auto) 0.7 x10^3/uL (0.0-1.1) Eosinophils # (Auto) 0.2 x10^3/uL (0.0-0.7) Basophils # (Auto) 0.1 x10^3/uL (0.0-0.2) Sodium Level 134 mmol/L (136-145) Potassium Level 4.4 mmol/L (3.5-5.1) Chloride Level 99 mmol/L (98-107) Carbon Dioxide Level 31 mmol/L (21-32) Anion Gap 4 (6-14) Blood Urea Nitrogen 11 mg/dL (7-20) Creatinine < 0.2 mg/dL (0.6-1.0) < 0.2 mg/dL (0.6-1.0) Estimated GFR (Cockcroft-Gault) Glucose Level 96 mg/dL (70-99) Calcium Level 7.7 mg/dL (8.5-10.1) Erythrocyte Sedimentation Rate 16 (0-25) Procalcitonin < 0.10 ng/mL (0.00-0.10) Laboratory Tests Test 01/28/17 13:50 01/29/17 04:45 Erythrocyte Sedimentation Rate 16 (0-25) Procalcitonin < 0.10 ng/mL (0.00-0.10) Creatinine < 0.2 mg/dL (0.6-1.0) Estimated GFR (Cockcroft-Gault) Microbiology 01/24/17 Gram Stain - Final, Complete Medications Current Medications Sodium Chloride 500 ml @ 0 mls/hr 1X ONCE IV Last administered on 01/24/17 13 :55; Start 01/24/17 at 13:00; Stop 01/24/17 at 13:01; Status DC Vancomycin HCl (Vanco Per Pharmacy) 1 each PRN DAILY PRN MC SEE COMMENTS Last administered on 01/26/17 16:47; Start 01/24/17 at 14:30; Stop 01/27/17 at 15:32 ; Status DC Vancomycin HCl 250 ml @ 250 mls/hr 1X ONCE IV Last administered on 01/24/17 17:04; Start 01/24/17 at 14:30; Stop 01/24/17 at 15:29; Status DC Ondansetron HCl (Zofran) 4 mg PRN Q8HRS PRN IV NAUSEA/VOMITING; Start 01/24/17 at 15:15; Stop 01/25/17 at 15:14; Status DC Morphine Sulfate 2 mg PRN Q2HR PRN IV PAIN Last administered on 01/25/17 10:11 ; Start 01/24/17 at 15:15; Stop 01/25/17 at 15:14; Status DC Sodium Chloride 1,000 ml @ 100 mls/hr Q10H IV Last administered on 01/25/17 10:00; Start 01/24/17 at 15:02; Stop 01/25/17 at 15:01; Status DC Vancomycin HCl 500 mg/Sodium Chloride 100 ml @ 100 mls/hr Q12H IV Last administered on 01/27/17 05:27; Start 01/25/17 at 05:00; Stop 01/27/17 at 15:32 ; Status DC Vancomycin HCl 1 each 1X ONCE MC ; Start 01/26/17 at 04:30; Stop 01/26/17 at 04 :31; Status DC Acetaminophen (Tylenol) 320 mg PRN Q6HRS PRN PO MILD PAIN / TEMP Last administered on 01/28/17 14:09; Start 01/24/17 at 20:15 Loperamide HCl (Imodium) 2 mg Q6HRS PEG Last administered on 01/29/17 11:29; Start 01/25/17 at 00:00 Famotidine (Pepcid) 20 mg BID PO Last administered on 01/29/17 10:44; Start at 23:00 Levetiracetam (Keppra) 500 mg BID PEG Last administered on 01/29/17 10:43; Start 01/24/17 at 23:00 Levothyroxine Sodium (Synthroid) 100 mcg DAILY07 PO Last administered on 05:29; Start 01/25/17 at 07:00 Scopolamine (Transderm-Scop) 1 patch Q3DAYS TD Last administered on 01/28/17 09:23; Start 01/25/17 at 09:00 Oxcarbazepine (Trileptal) 600 mg DAILY PEG Last administered on 01/29/17 10:43 ; Start 01/25/17 at 09:00 Oxcarbazepine (Trileptal) 750 mg QHS PEG Last administered on 01/28/17 20:05; Start 01/24/17 at 23:00 Morphine Sulfate 2 mg PRN Q2HR PRN IV SEVERE PAIN Last administered on 01:04; Start 01/26/17 at 01:00; Stop 01/27/17 at 13:53; Status DC Sodium Chloride 1,000 ml @ 75 mls/hr [id number] IV Last administered on 02:08; Start 01/26/17 at 01:00; Stop 01/27/17 at 15:32; Status DC Vancomycin HCl 1 each 1X ONCE MC Last administered on 01/26/17 16:30; Start 01/26/17 at 16:30; Stop 01/26/17 at 16:31; Status DC Morphine Sulfate 2 mg PRN Q2HR PRN IV SEVERE PAIN; Start 01/27/17 at 13:53 Iron Sucrose 200 mg/Sodium Chloride 110 ml @ 55 mls/hr DAILY IV Last administered on 01/27/17 18:20; Start 01/27/17 at 16:00; Stop 01/29/17 at 16:00 Cefpodoxime Proxetil (Vantin) 100 mg Q12HR PEG ; Start 01/27/17 at 16:00; Stop 01/27/17 at 16:49; Status DC Vancomycin HCl 750 gm/Sodium Chloride 250 ml @ 250 mls/hr Q12H IV Last administered on 01/28/17 05:02; Start 01/27/17 at 17:00; Stop 01/28/17 at 11:01 ; Status DC Vancomycin HCl (Vanco Per Pharmacy) 1 each PRN DAILY PRN MC SEE COMMENTS Last administered on 01/27/17 16:58; Start 01/27/17 at 16:45; Stop 01/28/17 at 11:01 ; Status DC Levofloxacin/ Dextrose 150 ml @ 100 mls/hr Q24H IV ; Start 01/28/17 at 12:00; Status Cancel Levofloxacin/ Dextrose 100 ml @ 100 mls/hr Q24H IV ; Start 01/28/17 at 12:00 Acetaminophen (Tylenol) 650 mg PRN Q6HRS PRN PEG MILD PAIN / TEMP Last administered on 01/28/17 20:05; Start 01/28/17 at 19:45 Acetaminophen/ Hydrocodone Bitart (Lortab 5/325) 1 tab PRN Q4HRS PRN PEG PAIN; Start 01/28/17 at 19:45 Lorazepam (Ativan) 2 mg PRN Q4HRS PRN IV ANXIETY / AGITATION; Start 01/29/17 at 12:00 Active Scripts Active Transderm-Scop (Scopolamine) 1 Each Patch.td72 1 Patch TD Q3DAYS Famotidine 20 Mg Tablet 20 Mg PO BID Reported Acetaminophen 160 Mg/5 Ml Solution 320 Mg PO PRN Q6HRS PRN Oxcarbazepine 300 Mg/5 Ml Oral.susp 12.4 Ml PEG QHS Take 12.4 mL via PEG every night at bedtime as needed. Oxcarbazepine 300 Mg/5 Ml Oral.susp 10 Ml PEG DAILY Take 10 mL via PEG every morning. Keppra (Levetiracetam) 100 Mg/1 Ml Solution 500 Mg PEG BID Levothyroxine Sodium 100 Mcg Tablet 1 Tab PEG DAILY Vitals/I & O Vital Sign - Last 24 Hours 01/28/17 01/28/17 01/28/17 01/28/17 14:49 19:00 20:00 22:47 Temp 97.9 98.8 98.8 97.9 98.8 98.8 Pulse 107 127 113 Resp 18 B/P (MAP) 126/55 (78) 162/87 (112) 119/55 (76) Pulse Ox 94 95 95 O2 Delivery Room Air Room Air Room Air Room Air 01/29/17 01/29/17 01/29/17 02:55 07:00 10:43 Temp 98.1 100.0 99.5 98.1 100.0 99.5 Pulse 102 107 110 Resp 18 B/P (MAP) 112/51 (71) 138/64 (88) 138/66 (90) Pulse Ox 94 95 93 O2 Delivery Room Air Room Air Room Air KATY TEMPLE MD Jan 29, 2017 13:50
[2017-01-29 15:00] VITALS: BP 145/69
--- NOTE | 2017-01-29 16:06 | PDOC2 ---
PALLIATIVE CARE Palliative Care Note Palliative Care Consult requested by Dr. Ward to address plan of care. 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 Is cared for at home by family. Mother 4 months ago who was her primary floor director. Patient had seizure this am. No new plans for treatment. Seen by Dr. Arteaga. Spoke with Dionicio sister vicente rodriguez who cares for her at home. States patient had been DNR when her mother had been caring for Magda but Ad/RK would need to be consulted before this decisions can be made. 1605: Attempted to reach Ad/brother per phone; [phone]; message to return call. 1620 Spoke with Ad/RK. Requested copy of AD. Discussed Code Status. He requests DNR/DNI. Understands without this attempt she likely would . Informed that Outside the Hospital DNR/DNI form will be available on her record to be signed by him and will be take home when she is discharged Discussed other aggressive measures (dialysis) if she declines. Will have further discussion tomorrow at 1500. KIA DOOLEY Jan 29, 2017 16:06
[2017-01-29] MEDS ORDERED: LINEZOLID 600 MG TABLET PEG ONE (18:30)
[2017-01-29 19:00] VITALS: BP 136/72
[2017-01-29] MEDS: ACETAMINOPHEN 650 MG/20.3 ML SOLUTION. PEG PRN (19:46)
[2017-01-29 22:59] VITALS: BP 109/40
[2017-01-30] VITALS (10 sets, daily range): BP systolic 111–153; BP diastolic 51–76
[2017-01-30] MEDS: LOPERAMIDE 2 MG/10 ML ORAL SOLUTION. PEG SCH ×3 (00:08→11:47)
[2017-01-30] MEDS: LEVOTHYROXINE 100 MCG TABLET PO SCH (05:57)
[2017-01-30] MEDS: HYDROcodone/APAP 5/325MG 1 TAB TABLET PEG PRN ×2 (06:23→15:16)
[2017-01-30] MEDS ORDERED: LIDOCAINE 1% / SOD BICARB 8.4% 20 ML VIAL. IJ ONE (09:15)
[2017-01-30 09:50] LABS: INR 1.1 (0.8-1.1); PROTHROMBIN TIME PATIENT 13.3 SEC (11.7-14.0)
--- NOTE | 2017-01-30 09:54 | PDOC ---
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
[2017-01-30] MEDS ORDERED: LIDOCAINE 1%/EPI 1:100,000 20 ML VIAL. ONE (10:11)
[2017-01-30] MEDS ORDERED: HEPARIN PF 500 UNIT/5 ML DISP.SYRIN. IV ONE ×2 (10:11→10:45)
--- NOTE | 2017-01-30 10:17 | RAD ---
Examination: MRI pelvis without contrast HISTORY: History of open wound the sacrum COMPARISON: None available TECHNIQUE: Multiplanar, multisequence MR imaging of the pelvis were performed without contrast FINDINGS: Examination is slightly limited due to mild motion artifact. There is a large sacral ulcer identified posterior and distal to the S5 level extending to the coccygeal region. The ulcer measures 3.2 cm in transverse dimension, 1.6 cm in AP dimension and 4.2 cm in CC dimension. The ulcer extends to the coccygeal region and causes increased signal on T2-weighted with corresponding low T1 signal images involving the S5 vertebral level and the coccyx bones with cortical disruption of the proximal coccygeal bones likely osteomyelitis. There is diffuse increased T2 signal identified in the muscles of the pelvis bilaterally. There is fatty atrophic changes of the gluteus medius and the pelvic muscles There is heterogeneous bone marrow signal identified in the pelvis likely physiological. Small amount of fluid identified in the sacral canal distally. IMPRESSION: 1. Large sacral ulcer identified extending deep to the level of the coccyx. There is increased T2 and corresponding low T1 signal involving the S5 vertebral level and the coccyx demonstrates with cortical disruption of the proximal coccygeal bones likely osteomyelitis. Triphasic bone scan and a CT scan may be useful for further evaluation. 2. Diffuse increased T2 signal identified in the muscles of the pelvis could be diffuse myositis or denervation edema. 3. Diffuse fatty atrophic changes of the gluteal muscles. Electronically signed by: Vlad Machado MD (01/30/2017 10:14 AM) [id number]
[2017-01-30] MEDS ORDERED: LIDOCAINE 1%/EPI 1:100,000 20 ML VIAL. INJ ONE (10:45)
--- NOTE | 2017-01-30 10:53 | PDOC ---
BRIEF OPERATIVE NOTE Pre-Op Diagnosis Infection Post-Op Diagnosis same Procedure Performed Tunnelled Power Line placement Surgeon Donnell Anesthesia Type: Local Findings Dual lumen tunnelled power line suitable for use Complications No immediate LAQUITA MORROW MD Jan 30, 2017 10:53
--- NOTE | 2017-01-30 11:21 | RAD ---
Procedure: Ultrasound and fluoroscopic guided tunneled central line placement Clinical Indication: 36-year-old requiring long-term venous access for antibiotic therapy Sedation: Local anesthesia only Antibiotics: Antibiotic was administered intravenously within 1 hour of the procedure start time. Exposure: Kerma-Area Product: 0.1 Gycm2 Contrast: None Sterility: All elements of maximal sterile barrier technique including the use of a cap, mask, sterile gown, sterile gloves, large sterile sheet, appropriate hand hygiene, and 2% chlorhexidine for cutaneous antisepsis (or acceptable alternative antiseptic per current guidelines) were followed for this procedure. Consent: The procedure was explained in its entirety to the patient or the patients designated insurance claims representative by a member of the treatment team, including a discussion of the risks, benefits and commonly accepted alternatives to the procedure, as well as the expected consequences of no therapy whatsoever. Discussion of the risks included, but was not limited to, those that are most frequent and those that are rare but possibly severe or life-threatening, as well as the possibility of unforeseen complications. Technique and Findings: Following informed consent, the patient was prepped and draped in usual sterile fashion. Ultrasound interrogation of the right neck revealed patency and compressibility of the right internal jugular vein. A hardcopy ultrasound image was recorded as a 21-gauge micropuncture needle was used to gain access to this vessel. The needle was exchanged over a wire for a 5 Ethiopian peel-away sheath. The skin over the right chest wall was then copiously anesthetized with 1% lidocaine plus epinephrine. A small dermatotomy was made. A tunneled dual lumen power line was then tunneled subcutaneously towards the neck dermatotomy then deployed through the peel-away sheath under fluoroscopic guidance such that the distal tip resided in the proximal right atrium. Both lumens flushed and aspirated with ease. The catheter was then sutured to the skin and flushed according to protocol. Complications: No immediate Impression: 1. Fluoroscopic guided tunneled power line as described
[2017-01-30] MEDS: OXcarbazepine 300 MG TABLET PEG SCH (11:49)
[2017-01-30] MEDS: FAMOTIDINE 20 MG TABLET. PO SCH (11:49)
--- NOTE | 2017-01-30 14:40 | PDOC ---
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 Grossman as outpatient Subjective None Objective Vital Signs Date Time Temp Pulse Resp B/P (MAP) Pulse Ox O2 Delivery O2 Flow Rate FiO2 01/30/17 13:15 99 136/64 (88) 01/30/17 11:15 97.9 18 97 Room Air 97.9 Intake and Output 01/31/17 07:00 Intake Total 0 ml Balance 0 ml Intake Oral 0 ml # Voids 2 # Bowel Movements 1 PHYSICAL EXAM Alert. Nonverbal, does not follow commands. PERRL. EOMI. CN: no focal findings. Muscle tone: Spastic quadriplegia Muscle strength: 0/5 DTR: Unable to elicit Plantar reflex: Silent Gait: not examined in bed. Sensory exam: Unable to test. Cerebellar: Unable to test. Review of Relevant I have reviewed the following items shyam (where applicable) has been applied. Labs Laboratory Tests Test 01/29/17 04:45 01/30/17 09:29 Creatinine < 0.2 mg/dL (0.6-1.0) Estimated GFR (Cockcroft-Gault) Prothrombin Time 13.3 SEC (11.7-14.0) Prothromb Time International Ratio 1.1 (0.8-1.1) Laboratory Tests Test 01/30/17 09:29 Prothrombin Time 13.3 SEC (11.7-14.0) Prothromb Time International Ratio 1.1 (0.8-1.1) Microbiology 01/24/17 Gram Stain - Final, Complete Medications Current Medications Sodium Chloride 500 ml @ 0 mls/hr 1X ONCE IV Last administered on 01/24/17 13 :55; Start 01/24/17 at 13:00; Stop 01/24/17 at 13:01; Status DC Vancomycin HCl (Vanco Per Pharmacy) 1 each PRN DAILY PRN MC SEE COMMENTS Last administered on 01/26/17 16:47; Start 01/24/17 at 14:30; Stop 01/27/17 at 15:32 ; Status DC Vancomycin HCl 250 ml @ 250 mls/hr 1X ONCE IV Last administered on 01/24/17 17:04; Start 01/24/17 at 14:30; Stop 01/24/17 at 15:29; Status DC Ondansetron HCl (Zofran) 4 mg PRN Q8HRS PRN IV NAUSEA/VOMITING; Start 01/24/17 at 15:15; Stop 01/25/17 at 15:14; Status DC Morphine Sulfate 2 mg PRN Q2HR PRN IV PAIN Last administered on 01/25/17 10:11 ; Start 01/24/17 at 15:15; Stop 01/25/17 at 15:14; Status DC Sodium Chloride 1,000 ml @ 100 mls/hr Q10H IV Last administered on 01/25/17 10:00; Start 01/24/17 at 15:02; Stop 01/25/17 at 15:01; Status DC Vancomycin HCl 500 mg/Sodium Chloride 100 ml @ 100 mls/hr Q12H IV Last administered on 01/27/17 05:27; Start 01/25/17 at 05:00; Stop 01/27/17 at 15:32 ; Status DC Vancomycin HCl 1 each 1X ONCE MC ; Start 01/26/17 at 04:30; Stop 01/26/17 at 04 :31; Status DC Acetaminophen (Tylenol) 320 mg PRN Q6HRS PRN PO MILD PAIN / TEMP Last administered on 01/28/17 14:09; Start 01/24/17 at 20:15; Stop 01/29/17 at 15:58 ; Status DC Loperamide HCl (Imodium) 2 mg Q6HRS PEG Last administered on 01/30/17 11:47; Start 01/25/17 at 00:00 Famotidine (Pepcid) 20 mg BID PO Last administered on 01/30/17 11:49; Start at 23:00 Levetiracetam (Keppra) 500 mg BID PEG Last administered on 01/30/17 11:48; Start 01/24/17 at 23:00 Levothyroxine Sodium (Synthroid) 100 mcg DAILY07 PO Last administered on 05:57; Start 01/25/17 at 07:00 Scopolamine (Transderm-Scop) 1 patch Q3DAYS TD Last administered on 01/28/17 09:23; Start 01/25/17 at 09:00 Oxcarbazepine (Trileptal) 600 mg DAILY PEG Last administered on 01/30/17 11:49 ; Start 01/25/17 at 09:00 Oxcarbazepine (Trileptal) 750 mg QHS PEG Last administered on 01/29/17 21:00; Start 01/24/17 at 23:00 Morphine Sulfate 2 mg PRN Q2HR PRN IV SEVERE PAIN Last administered on 01:04; Start 01/26/17 at 01:00; Stop 01/27/17 at 13:53; Status DC Sodium Chloride 1,000 ml @ 75 mls/hr [id number] IV Last administered on 02:08; Start 01/26/17 at 01:00; Stop 01/27/17 at 15:32; Status DC Vancomycin HCl 1 each 1X ONCE MC Last administered on 01/26/17 16:30; Start 01/26/17 at 16:30; Stop 01/26/17 at 16:31; Status DC Morphine Sulfate 2 mg PRN Q2HR PRN IV SEVERE PAIN; Start 01/27/17 at 13:53 Iron Sucrose 200 mg/Sodium Chloride 110 ml @ 55 mls/hr DAILY IV Last administered on 01/27/17 18:20; Start 01/27/17 at 16:00; Stop 01/29/17 at 16:00 ; Status DC Cefpodoxime Proxetil (Vantin) 100 mg Q12HR PEG ; Start 01/27/17 at 16:00; Stop 01/27/17 at 16:49; Status DC Vancomycin HCl 750 gm/Sodium Chloride 250 ml @ 250 mls/hr Q12H IV Last administered on 01/28/17 05:02; Start 01/27/17 at 17:00; Stop 01/28/17 at 11:01 ; Status DC Vancomycin HCl (Vanco Per Pharmacy) 1 each PRN DAILY PRN MC SEE COMMENTS Last administered on 01/27/17 16:58; Start 01/27/17 at 16:45; Stop 01/28/17 at 11:01 ; Status DC Levofloxacin/ Dextrose 150 ml @ 100 mls/hr Q24H IV ; Start 01/28/17 at 12:00; Status Cancel Levofloxacin/ Dextrose 100 ml @ 100 mls/hr Q24H IV ; Start 01/28/17 at 12:00; Stop 01/29/17 at 13:47; Status DC Acetaminophen (Tylenol) 650 mg PRN Q6HRS PRN PEG MILD PAIN / TEMP Last administered on 01/29/17 19:46; Start 01/28/17 at 19:45 Acetaminophen/ Hydrocodone Bitart (Lortab 5/325) 1 tab PRN Q4HRS PRN PEG PAIN Last administered on 01/30/17 06:23; Start 01/28/17 at 19:45 Lorazepam (Ativan) 2 mg PRN Q4HRS PRN IV ANXIETY / AGITATION; Start 01/29/17 at 12:00 Ceftriaxone Sodium 1 gm/ Sodium Chloride 50 ml @ 100 mls/hr Q24H IV Last administered on 01/30/17 13:32; Start 01/29/17 at 14:00 Linezolid (Zyvox) 600 mg 1X ONCE PEG Last administered on 01/29/17 19:46; Start 01/29/17 at 18:30; Stop 01/29/17 at 18:34; Status DC Levofloxacin (Levaquin) 500 mg 1X ONCE PEG Last administered on 01/29/17 19: 46; Start 01/29/17 at 18:30; Stop 01/29/17 at 18:34; Status DC Heparin Sodium/ Sodium Chloride 1,000 unit 1X ONCE IART Last administered on 09:15; Start 01/30/17 at 09:15; Stop 01/30/17 at 09:16; Status DC Lidocaine/Sodium Bicarbonate (Buffered Lidocaine 1%) 20 ml 1X ONCE IJ ; Start 01/30/17 at 09:15; Stop 01/30/17 at 09:16; Status Cancel Lidocaine/ Epinephrine (Xylocaine 1%-Epi 1:100,000) 20 ml STK-MED ONCE .ROUTE ; Start 01/30/17 at 10:11; Stop 01/30/17 at 10:12; Status DC Heparin Sodium (Porcine) (Hep Lock Adult) 500 unit STK-MED ONCE IV ; Start 01/30 at 10:11; Stop 01/30/17 at 10:12; Status DC Cefazolin Sodium 50 ml @ 100 mls/hr 1X ONCE IV Last administered on 10:45; Start 01/30/17 at 10:45; Stop 01/30/17 at 11:14; Status DC Lidocaine/ Epinephrine (Xylocaine 1%-Epi 1:100,000) 20 ml 1X ONCE INJ Last administered on 01/30/17 10:45; Start 01/30/17 at 10:45; Stop 01/30/17 at 10:46 ; Status DC Heparin Sodium (Porcine) (Hep Lock Adult) 500 unit 1X ONCE IV Last administered on 01/30/17 10:45; Start 01/30/17 at 10:45; Stop 01/30/17 at 10:46 ; Status DC Active Scripts Active Transderm-Scop (Scopolamine) 1 Each Patch.td72 1 Patch TD Q3DAYS Famotidine 20 Mg Tablet 20 Mg PO BID Reported Acetaminophen 160 Mg/5 Ml Solution 320 Mg PO PRN Q6HRS PRN Oxcarbazepine 300 Mg/5 Ml Oral.susp 12.4 Ml PEG QHS Take 12.4 mL via PEG every night at bedtime as needed. Oxcarbazepine 300 Mg/5 Ml Oral.susp 10 Ml PEG DAILY Take 10 mL via PEG every morning. Keppra (Levetiracetam) 100 Mg/1 Ml Solution 500 Mg PEG BID Levothyroxine Sodium 100 Mcg Tablet 1 Tab PEG DAILY Vitals/I & O Vital Sign - Last 24 Hours 01/29/17 01/29/17 01/29/17 01/29/17 15:00 19:00 20:00 22:59 Temp 99.0 99.1 97.7 99.0 99.1 97.7 Pulse 98 110 101 Resp 18 19 18 B/P (MAP) 145/69 (94) 136/72 (93) 109/40 (63) Pulse Ox 96 95 94 O2 Delivery Room Air Room Air Room Air Room Air 01/30/17 01/30/17 01/30/17 01/30/17 03:00 06:23 07:00 07:45 Temp 98.6 97.9 98.6 97.9 Pulse 92 100 Resp 14 18 18 B/P (MAP) 111/51 (71) 153/62 (92) Pulse Ox 96 96 O2 Delivery Room Air Room Air Room Air 01/30/17 01/30/17 01/30/17 01/30/17 08:00 11:15 11:30 11:45 Temp 97.9 97.9 Pulse 92 87 91 Resp 18 B/P (MAP) 136/76 (96) 127/57 (80) 129/54 (79) Pulse Ox 97 O2 Delivery Room Air Room Air 01/30/17 01/30/17 01/30/17 01/30/17 12:00 12:15 12:45 13:15 Pulse 89 92 96 99 B/P (MAP) 132/60 (84) 148/59 (88) 144/59 (87) 136/64 (88) Intake and Output 01/30/17 01/30/17 01/31/17 15:00 23:00 07:00 Intake Total 0 ml Balance 0 ml MARILEE BACON MD Jan 30, 2017 14:39
--- NOTE | 2017-01-30 15:05 | PDOC2 ---
PALLIATIVE CARE Palliative Care Note Palliative Care Plan discharge today at 1600. Home with IV antibiotics; HH Spoke with [facility]. [facility] is unavailable at this time. They have discussed plan of care. Likely they would not do "real aggressive measures" (dialysis or other aggressive measures--will make those decisions at that time) They are more interested in quality of time. Know that other family members would support those decisions. Code Status: DNR/DNI. KIA DOOLEY Jan 30, 2017 15:05
--- NOTE | 2017-01-31 14:17 | PDOC3 ---
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 on bolus PEG feeds; Functional paraplegia: hx brain tumors, s/p resection. has been nonverbal/ paraplegic for 10 yrs, but apparently able to communicate with visual gaze adapted computer screen head lesion iron deficient anemia hyponatremia SIRS on admit seizure d/o, epilepsy Problems Medical Problems: (1) Hyponatremia Status: Acute (2) Leukocytosis Status: Acute (3) Wound infection Status: Acute Brief Hospital Course Allergies Allergies Coded Allergies Type Severity Reaction Last Updated Verified apple Allergy Severe SEIZURES 09/28/15 Yes phenytoin Allergy Intermediate Rash 09/28/15 Yes Vital Signs Vital Signs Date Time Temp Pulse Resp B/P (MAP) Pulse Ox O2 Delivery O2 Flow Rate FiO2 01/30/17 16:22 97 Room Air 01/30/17 15:16 20 01/30/17 14:43 98.1 94 141/68 (92) 98.1 Lab Results Laboratory Tests Test 01/30/17 09:29 Prothrombin Time 13.3 SEC (11.7-14.0) Prothromb Time International Ratio 1.1 (0.8-1.1) Brief Hospital Course Ms Howard, 36 yo female, admit for skin change decub ulcer, on ceftriaxone IV 1 month nutrition consulted, now on bolus 250cc q6h, with water SW for HH on wound vac, cont wound care to follow at home given venelian flores level OK PICC line placed Discharge Information Condition at Discharge: Improved Follow Up: Weeks Disposition/Orders: D/C to Home Scheduled Famotidine (Famotidine), 20 MG PO BID Levetiracetam (Keppra), 500 MG PEG BID, (Reported) Levothyroxine Sodium (Levothyroxine Sodium), 1 TAB PEG DAILY, (Reported) Oxcarbazepine (Oxcarbazepine), 10 ML PEG DAILY, (Reported) Oxcarbazepine (Oxcarbazepine), 12.4 ML PEG QHS, (Reported) Scopolamine (Transderm-Scop), 1 PATCH TD Q3DAYS Scheduled PRN Acetaminophen (Acetaminophen), 320 MG PO PRN Q6HRS PRN for PAIN, (Reported) Discontinued Medications Acetaminophen (Acetaminophen), 500 MG PO, (Reported) Discontinued Reason: DC Acidoph/L.bulg/Bif.b/S.thermop (Maryam-Bid Caplet), 1 TAB PO DAILY Discontinued Reason: discontinu Nystatin (Nystop), 1 MUNA TP BID Discontinued Reason: discontinu Patient Instructions Patient Instructions > 30 min EDWIN MEADOWS MD Jan 31, 2017 14:17
== END 2017-01-30 16:27 | disposition home health service (06) | DRG 592 ==
LOC: ER 12:25 → 4 NORTH 13:20 → 5 NORTH 16:50
PROVIDERS: ADMIT Internal Medicine Hematology & Oncology; ATTEND Internal Medicine Hematology & Oncology
PROC: 02H633Z Insertion of Infusion Device into Right Atrium, Percutaneous Approach (ICD-10-PCS; principal; 2017-01-30)
PROC: B2141ZZ Fluoroscopy of Right Heart using Low Osmolar Contrast (ICD-10-PCS; 2017-01-30)
PROC: B548ZZA Ultrasonography of Superior Vena Cava, Guidance (ICD-10-PCS; 2017-01-30)
DX: L89.154 Pressure ulcer of sacral region, stage 4 (principal); G82.50 Quadriplegia, unspecified; E44.0 Moderate protein-calorie malnutrition; G83.5 Locked-in state; R13.10 Dysphagia, unspecified; R65.10 Systemic inflammatory response syndrome (SIRS) of non-infectious origin without acute organ dysfunction; E87.1 Hypo-osmolality and hyponatremia; R47.01 Aphasia; I69.359 Hemiplegia and hemiparesis following cerebral infarction affecting unspecified side; L03.317 Cellulitis of buttock; D50.9 Iron deficiency anemia, unspecified; E89.0 Postprocedural hypothyroidism; E86.0 Dehydration; F79 Unspecified intellectual disabilities; B96.20 Unspecified Escherichia coli [E. coli] as the cause of diseases classified elsewhere; G40.909 Epilepsy, unspecified, not intractable, without status epilepticus; B95.1 Streptococcus, group B, as the cause of diseases classified elsewhere; B95.61 Methicillin susceptible Staphylococcus aureus infection as the cause of diseases classified elsewhere; Z51.5 Encounter for palliative care; Z66 Do not resuscitate; Z74.01 Bed confinement status; Z87.820 Personal history of traumatic brain injury; Z93.1 Gastrostomy status; Z68.20 Body mass index [BMI] 20.0-20.9, adult; Z88.8 Allergy status to other drugs, medicaments and biological substances; Z91.018 Allergy to other foods
CPT/HCPCS: 36415; 36558; 70250; 71010; 72195; 76937; 77001; 80048; 80053; 80177; 80202; 81001; 82565; 82607; 82728; 82746; 83540; 83550; 83735; 84145; 85007; 85025; 85045; 85610; 85651; 87070; 87205; 96361; 96374; C1751; C1892; J0690; J0696; J1644; J1756; J2270; J3370; J3490; J7030; J7040; J7050; P9612; 99285-25

== ENCOUNTER → 2017-02-10 | Outpatient (CLI) | payer MEDICARE, OTHER ==
[2017-01-30 13:15] VITALS: BP 136/64
[~2017-02-10] MED LIST changes: +ACET160O49 PO; +ACET160S PO; +DIPH1TAB PO; +OXCA300O PEG
== END | disposition home or self-care (01) ==
LOC: PMGWOUND 09:59
PROVIDERS: ATTEND Emergency Medicine Undersea and Hyperbaric Medicine
DX: L89.154 Pressure ulcer of sacral region, stage 4 (principal); L89.313 Pressure ulcer of right buttock, stage 3; E03.9 Hypothyroidism, unspecified; G82.20 Paraplegia, unspecified; G82.50 Quadriplegia, unspecified; I63.9 Cerebral infarction, unspecified; G81.90 Hemiplegia, unspecified affecting unspecified side; Z86.73 Personal history of transient ischemic attack (TIA), and cerebral infarction without residual deficits
CPT/HCPCS: 97605

== ENCOUNTER → 2017-02-17 | Outpatient (CLI) | payer MEDICARE, OTHER ==
[2017-01-30 13:15] VITALS: BP 136/64
[~2017-02-17] MED LIST changes: -DIPH1TAB PO
== END | disposition home or self-care (01) ==
LOC: PMGWOUND 10:33
PROVIDERS: ATTEND Emergency Medicine Undersea and Hyperbaric Medicine
DX: L89.154 Pressure ulcer of sacral region, stage 4 (principal); L89.313 Pressure ulcer of right buttock, stage 3; B37.89 Other sites of candidiasis; Z86.73 Personal history of transient ischemic attack (TIA), and cerebral infarction without residual deficits; E03.9 Hypothyroidism, unspecified
CPT/HCPCS: 99214

== ENCOUNTER → 2017-02-24 | Outpatient (CLI) | payer MEDICARE, OTHER ==
[2017-01-30 13:15] VITALS: BP 136/64
== END | disposition home or self-care (01) ==
LOC: PMGWOUND 12:30
PROVIDERS: ATTEND Emergency Medicine Undersea and Hyperbaric Medicine
DX: L89.154 Pressure ulcer of sacral region, stage 4 (principal); L89.313 Pressure ulcer of right buttock, stage 3; B37.89 Other sites of candidiasis; Z86.73 Personal history of transient ischemic attack (TIA), and cerebral infarction without residual deficits; E03.9 Hypothyroidism, unspecified
CPT/HCPCS: 99213

== ENCOUNTER → 2017-03-03 | Outpatient (CLI) | payer MEDICARE, OTHER ==
[2017-01-30 13:15] VITALS: BP 136/64
== END | disposition home or self-care (01) ==
LOC: PMGWOUND 12:34
PROVIDERS: ATTEND Emergency Medicine Undersea and Hyperbaric Medicine
DX: L89.154 Pressure ulcer of sacral region, stage 4 (principal); L89.313 Pressure ulcer of right buttock, stage 3; B37.89 Other sites of candidiasis; E03.9 Hypothyroidism, unspecified; Z86.73 Personal history of transient ischemic attack (TIA), and cerebral infarction without residual deficits; Z85.841 Personal history of malignant neoplasm of brain
CPT/HCPCS: 97605

== ENCOUNTER → 2017-03-31 | Outpatient (CLI) | payer MEDICARE, OTHER ==
[2017-03-24 15:00] VITALS: BP 130/59
[~2017-03-31] MED LIST changes: +DIPH1TAB PO
== END | disposition home or self-care (01) ==
LOC: PMGWOUND 10:46
PROVIDERS: ATTEND Emergency Medicine Undersea and Hyperbaric Medicine
DX: L89.154 Pressure ulcer of sacral region, stage 4 (principal); L89.892 Pressure ulcer of other site, stage 2; L89.522 Pressure ulcer of left ankle, stage 2; L89.512 Pressure ulcer of right ankle, stage 2; S30.820A Blister (nonthermal) of lower back and pelvis, initial encounter; B37.89 Other sites of candidiasis; E03.9 Hypothyroidism, unspecified; G82.50 Quadriplegia, unspecified; Z85.841 Personal history of malignant neoplasm of brain; Z86.73 Personal history of transient ischemic attack (TIA), and cerebral infarction without residual deficits; X58.XXXA Exposure to other specified factors, initial encounter; Y93.89 Activity, other specified; Y92.89 Other specified places as the place of occurrence of the external cause; Y99.8 Other external cause status
CPT/HCPCS: 99214

== ENCOUNTER → 2017-04-07 | Outpatient (CLI) | payer MEDICARE, OTHER ==
[2017-03-24 15:00] VITALS: BP 130/59
== END | disposition home or self-care (01) ==
LOC: PMGWOUND 11:40
PROVIDERS: ATTEND Emergency Medicine Undersea and Hyperbaric Medicine
DX: L89.154 Pressure ulcer of sacral region, stage 4 (principal); L89.313 Pressure ulcer of right buttock, stage 3; B37.89 Other sites of candidiasis; E03.9 Hypothyroidism, unspecified; Z86.73 Personal history of transient ischemic attack (TIA), and cerebral infarction without residual deficits; Z85.841 Personal history of malignant neoplasm of brain
CPT/HCPCS: 97597

== ENCOUNTER 2017-04-09 08:29 | Outpatient (CLI) | payer MEDICARE, OTHER ==
[2017-03-24 15:00] VITALS: BP 130/59
[~2017-04-09] VITALS: Ht 137.2 cm; Wt 34.0 kg
--- NOTE | 2017-04-09 08:30 | PDOC1 ---
IR Pre-Procedure H&P H&P Update No significant change from Dr. Zuluaga admqueenie H&P done 03/22/17. RI CVC will be removed per request. LINDA HEAD MD Apr 09, 2017 08:30
[2017-04-09] MEDS ORDERED: LIDOCAINE 1%/EPI 1:100,000 20 ML VIAL. ONE (09:07)
--- NOTE | 2017-04-09 10:10 | RAD ---
Procedure: Right sided central venous catheterTunneled catheter removal. CLINICAL INDICATION: Long-term antibiotics, central access no longer needed The procedure, risks, and complications were splinting to the patient's family and they understood and wished to proceed. Consent form signed. The right anterior chest region was prepped and draped using maximal sterile technique and 1% Xylocaine used for local anesthesia. Utilizing sharp and blunt dissection, the catheter cuff was freed and the entire catheter removed without complication. The cuff appears grossly intact. Pressure was placed at the puncture site and hemostasis obtained. The patient's family fully understands the remote possibility of a retained cuff fragment and will contact us if symptoms develop. The patient tolerated procedure well and there no immediate complications. Pre and post removal fluoroscopic images were obtained. Post removal, no radiopaque catheter fragment seen. Fluoroscopy time: 0.1 minutes, two images IMPRESSION: Successful right internal jugular central venous tunneled catheter removal.
[2017-04-09] MEDS ORDERED: LIDOCAINE 1% / SOD BICARB 8.4% 20 ML VIAL. IJ ONE (11:00)
== END 2017-04-09 10:15 | disposition home or self-care (01) ==
LOC: INTRAD 08:29
PROVIDERS: ATTEND Internal Medicine Infectious Disease
DX: Z79.2 Long term (current) use of antibiotics (principal); R56.9 Unspecified convulsions; E03.9 Hypothyroidism, unspecified; Z51.11 Encounter for antineoplastic chemotherapy; Z91.02 Food additives allergy status; Z88.2 Allergy status to sulfonamides
CPT/HCPCS: 36589; 77001

== ENCOUNTER → 2017-04-14 | Outpatient (CLI) | payer MEDICARE, OTHER ==
[2017-03-24 15:00] VITALS: BP 130/59
== END | disposition home or self-care (01) ==
LOC: PMGWOUND 13:40
PROVIDERS: ATTEND Emergency Medicine Undersea and Hyperbaric Medicine
DX: L89.154 Pressure ulcer of sacral region, stage 4 (principal); L89.313 Pressure ulcer of right buttock, stage 3; L89.892 Pressure ulcer of other site, stage 2; B37.89 Other sites of candidiasis; G82.50 Quadriplegia, unspecified; G40.909 Epilepsy, unspecified, not intractable, without status epilepticus; Z93.1 Gastrostomy status; E89.0 Postprocedural hypothyroidism; G93.41 Metabolic encephalopathy; Z92.21 Personal history of antineoplastic chemotherapy; Z86.011 Personal history of benign neoplasm of the brain; Z88.2 Allergy status to sulfonamides; Z85.841 Personal history of malignant neoplasm of brain; Z86.73 Personal history of transient ischemic attack (TIA), and cerebral infarction without residual deficits; Z91.02 Food additives allergy status; Z79.4 Long term (current) use of insulin; Z79.2 Long term (current) use of antibiotics
CPT/HCPCS: 99214

== ENCOUNTER → 2017-04-22 | Outpatient (CLI) | payer MEDICARE, OTHER ==
[2017-03-24 15:00] VITALS: BP 130/59
== END | disposition home or self-care (01) ==
LOC: PMGWOUND 12:16
PROVIDERS: ATTEND Emergency Medicine Undersea and Hyperbaric Medicine
DX: L89.154 Pressure ulcer of sacral region, stage 4 (principal); L89.893 Pressure ulcer of other site, stage 3; G40.909 Epilepsy, unspecified, not intractable, without status epilepticus; G82.50 Quadriplegia, unspecified; Z79.4 Long term (current) use of insulin; Z92.21 Personal history of antineoplastic chemotherapy; Z85.841 Personal history of malignant neoplasm of brain; Z86.011 Personal history of benign neoplasm of the brain; Z86.73 Personal history of transient ischemic attack (TIA), and cerebral infarction without residual deficits
CPT/HCPCS: 99214

== ENCOUNTER → 2017-04-28 | Outpatient (CLI) | payer MEDICARE, OTHER ==
[2017-03-24 15:00] VITALS: BP 130/59
== END | disposition home or self-care (01) ==
LOC: PMGWOUND 11:34
PROVIDERS: ATTEND Emergency Medicine Undersea and Hyperbaric Medicine
DX: L89.154 Pressure ulcer of sacral region, stage 4 (principal); L89.893 Pressure ulcer of other site, stage 3; G40.909 Epilepsy, unspecified, not intractable, without status epilepticus; G82.50 Quadriplegia, unspecified; E03.9 Hypothyroidism, unspecified; Z79.4 Long term (current) use of insulin; Z92.21 Personal history of antineoplastic chemotherapy; Z85.841 Personal history of malignant neoplasm of brain; Z86.011 Personal history of benign neoplasm of the brain; Z86.73 Personal history of transient ischemic attack (TIA), and cerebral infarction without residual deficits
CPT/HCPCS: 99214

== ENCOUNTER → 2017-05-13 | Outpatient (CLI) | payer MEDICARE, OTHER | END | disposition home or self-care (01) | LOC: PMGWOUND 11:46 | DX: L89.154 Pressure ulcer of sacral region, stage 4 (principal); L89.892 Pressure ulcer of other site, stage 2; B37.89 Other sites of candidiasis; Z86.73 Personal history of transient ischemic attack (TIA), and cerebral infarction without residual deficits; E03.9 Hypothyroidism, unspecified | CPT/HCPCS: 99215 ==

== ENCOUNTER 2017-05-15 21:39 | Emergency (ER) | payer MEDICARE, OTHER ==
[2017-05-15 22:13] LABS: BILIRUBIN,URINE NEGATIVE (NEG); CLARITY,URINE CLEAR; COLOR,URINE YELLOW; GLUCOSE,URINE NEGATIVE (NEG); NITRITE,URINE NEGATIVE (NEG); PH,URINE 6.5; PROTEIN,URINE NEGATIVE (NEG-TRACE); UROBILINOGEN,URINE 0.2 mg/dL (0.2 mg/dL)
[2017-05-15 22:18] LABS: BACTERIA,URINE 0 /HPF (0-FEW); RBC,URINE OCC /HPF (0-2); SQUAMOUS EPITHELIAL CELL,UR FEW /LPF; WBC,URINE OCC /HPF (0-4)
[2017-05-15 22:59] LABS: AGAP ISTAT 13 mmol/L (6-14); BUN ISTAT 35 mg/dL (8-26); CHLORIDE ISTAT 100 mmol/L (98-110); CREATININE ISTAT 0.4 mg/dL (0.5-1.4); GLUCOSE ISTAT 93 mg/dL (70-99); HEMATOCRIT ISTAT 26 % (36-40); HEMOGLOBIN ISTAT 8.8 g/dL (12-15); ION CA ISTAT 1.12 mmol/L (1.13-1.32); POTASSIUM ISTAT 4.2 mmol/L (3.5-5.0); SODIUM ISTAT 139 mmol/L (135-145); TOT CO2 ISTAT 31 mmol/L (23-32)
== END 2017-05-15 23:08 | disposition home or self-care (01) ==
LOC: ER 21:39
DX: D64.9 Anemia, unspecified (principal); E86.0 Dehydration; R34 Anuria and oliguria; E89.0 Postprocedural hypothyroidism; Z86.73 Personal history of transient ischemic attack (TIA), and cerebral infarction without residual deficits; Z88.4 Allergy status to anesthetic agent; Z91.018 Allergy to other foods
CPT/HCPCS: 36415; 80047; 81001; 85014; 85018; 99285-25

== ENCOUNTER → 2017-05-27 | Outpatient (CLI) | payer MEDICARE, OTHER | END | disposition home or self-care (01) | LOC: PMGWOUND 10:38 | DX: L89.154 Pressure ulcer of sacral region, stage 4 (principal); L89.893 Pressure ulcer of other site, stage 3; B37.89 Other sites of candidiasis; E03.9 Hypothyroidism, unspecified; G82.50 Quadriplegia, unspecified; Z86.73 Personal history of transient ischemic attack (TIA), and cerebral infarction without residual deficits; Z85.841 Personal history of malignant neoplasm of brain; Z86.011 Personal history of benign neoplasm of the brain | CPT/HCPCS: 97597 ==

== ENCOUNTER → 2017-06-17 | Outpatient (CLI) | payer MEDICARE, OTHER | END | disposition home or self-care (01) | LOC: PMGWOUND 10:30 | DX: L89.154 Pressure ulcer of sacral region, stage 4 (principal); L89.893 Pressure ulcer of other site, stage 3; B37.89 Other sites of candidiasis; E03.9 Hypothyroidism, unspecified; G82.50 Quadriplegia, unspecified; Z86.73 Personal history of transient ischemic attack (TIA), and cerebral infarction without residual deficits; Z85.841 Personal history of malignant neoplasm of brain; Z86.011 Personal history of benign neoplasm of the brain | CPT/HCPCS: 97597 ==